=== PATIENT | male | born 1955 | race Two or more races ===

== ENCOUNTER 2020-01-17 16:00 | Inpatient (IN) | payer BC, OTHER ==
[~2020-01-17] VITALS: Ht 182.9 cm; Wt 96.7 kg
[2020-01-17] MEDS ORDERED: PIPERACILLIN-TAZOB 3.375GM 100 ML IV ONE (16:30)
[2020-01-17 19:05] LABS: Basophils # (auto) 0.1 10 ^3/uL (0-0.2); Basophils % (auto) 0.8 % (0.0-2.0); Eosinophils # (auto) 0.1 10 ^3/uL (0-0.8); Eosinophils % (auto) 0.6 % (0.0-7.0); Hematocrit 43.2 % (41.0-53.0); Hemoglobin 14.6 g/dL (13.5-17.5); Lymphocytes # (auto) 1.2 10 ^3/uL (0.4-5.4); Mean Corpuscular Hemoglobin 32.8 pg (28.0-32.0); Mean Corpuscular Hgb Conc. 33.8 g/dL (32.0-36.0); Mean Corpuscular Volume 96.9 fL (80.0-100.0); Monocytes # (auto) 0.8 10 ^3/uL (0-1.3); Monocytes % (auto) 8.8 % (0.0-12.0); Neutrophils # (auto) 6.8 10 ^3/uL (1.6-8.6); Neutrophils % (auto) 76.8 % (37.0-80.0); Nucleated Red Blood Cells % 0.1 %; Platelet Count (auto) 268 10^3/uL (140-450); Red Blood Cells 4.46 10^6/uL (4.5-5.90); Red Cell Distribution Width 14.4 % (11.8-14.3); White Blood Cell 8.9 10^3/uL (4.4-10.8)
[2020-01-17 19:06] LABS: Lactic Acid w/Reflex 2.1 mmol/L (0.4-2.0)
[2020-01-17 19:22] LABS: Albumin 3.1 g/dL (3.4-5.0); Calcium 8.4 mg/dL (8.5-10.1); Potassium 4.6 mmol/L (3.5-5.1)
[2020-01-17 19:25] LABS: INR 1.13 (0.9-1.15); Partial Thromboplastin Time 26.9 sec (23.0-31.2)
[2020-01-17 19:26] LABS: BUN/Creatinine Ratio 21.3; Bilirubin, Total 0.9 mg/dL (0.2-1.0); Total Protein 6.3 g/dL (6.4-8.2)
[2020-01-17] MEDS ORDERED: MORPHINE SULF INJ 2 MG/ML SYRINGE 1ML IV PRN (22:00)
[2020-01-17] MEDS ORDERED: ACETAMINOPHEN 325 MG TAB PO PRN (22:00)
[2020-01-17] MEDS ORDERED: ONDANSETRON HCL 4 MG/2 ML VIAL IV PRN (22:00)
[2020-01-17] MEDS ORDERED: NITROGLYCERIN 0.4 MG SL TAB SL PRN (22:00)
[2020-01-17] MEDS: CARVEDILOL 3.125 MG TAB PO SCH (22:00)
[2020-01-17] MEDS ORDERED: TEMAZEPAM 15 MG CAP PO PRN (22:00)
[2020-01-17] MEDS ORDERED: FUROSEMIDE 40 MG/4 ML VIAL IV ONE (22:00)
[2020-01-17] MEDS: ATORVASTATIN 20 MG TAB PO SCH (22:38)
[2020-01-17] MEDS: FAMOTIDINE 20 MG TAB PO SCH (22:38)
[2020-01-17] MEDS: cefTRIAXone 1GM/50ML D5W 50 ML IV SCH (22:39)
[2020-01-17] MEDS: ENOXAPARIN SOD 40 MG/0.4 ML SYRINGE SC SCH (22:39)
[2020-01-18] MEDS ORDERED: VANCOMYCIN 1GM/250ML 250 ML IV ONE (00:15)
[2020-01-18 05:33] LABS: Urine Bacteria FEW /hpf (None Seen); Urine Blood Negative /uL (Negative); Urine Specific Gravity 1.006 (1.001-1.035); Urine WBC <1 /hpf (0 - 3)
[2020-01-18] MEDS ORDERED: FUROSEMIDE 20 MG/2 ML VIAL IV SCH (06:00)
[2020-01-18 06:26] LABS: Potassium 4.1 mmol/L (3.5-5.1)
[2020-01-18 06:35] LABS: BUN/Creatinine Ratio 16.3; Calcium 8.2 mg/dL (8.5-10.1)
[2020-01-18 06:55] LABS: Basophils # (auto) 0.1 10 ^3/uL (0-0.2); Basophils % (auto) 0.7 % (0.0-2.0); Eosinophils # (auto) 0.1 10 ^3/uL (0-0.8); Eosinophils % (auto) 0.9 % (0.0-7.0); Hematocrit 42.1 % (41.0-53.0); Hemoglobin 14.2 g/dL (13.5-17.5); Lymphocytes # (auto) 1.2 10 ^3/uL (0.4-5.4); Mean Corpuscular Hemoglobin 32.2 pg (28.0-32.0); Mean Corpuscular Hgb Conc. 33.7 g/dL (32.0-36.0); Mean Corpuscular Volume 95.8 fL (80.0-100.0); Monocytes # (auto) 1.1 10 ^3/uL (0-1.3); Monocytes % (auto) 13.1 % (0.0-12.0); Neutrophils # (auto) 5.8 10 ^3/uL (1.6-8.6); Neutrophils % (auto) 70.3 % (37.0-80.0); Nucleated Red Blood Cells % 0.2 %; Platelet Count (auto) 221 10^3/uL (140-450); Red Cell Distribution Width 14.5 % (11.8-14.3); White Blood Cell 8.2 10^3/uL (4.4-10.8)
--- NOTE | 2020-01-18 09:45 | NUR ---
Telemetry admit from ER ALYSE DALTON admitted to Telemetry unit after SBAR received. Patient oriented to JONNY DE LEÓN RN primary RN, unit,284 room,B bed, and unit policies regarding patient care and visiting hours. Patient now on continuous telemetry monitoring, tele box #84 and telemetry reading on arrival to unit is SR 90's. Patient weighed by bedscale and encouraged to call if they need something. All questions and concerns addressed, patient verbalized understanding. Note:
[2020-01-18] MEDS: CARVEDILOL 3.125 MG TAB PO SCH ×2 (10:00→21:28)
[2020-01-18] MEDS ORDERED: INDO50CA82 PO (10:08)
[2020-01-18] MEDS: PANTOPRAZOLE 40 MG TAB PO SCH (10:09)
[2020-01-18] MEDS: ASPirin 81 mg TAB PO SCH (10:09)
[2020-01-18] MEDS: cefTRIAXone 1GM/50ML D5W 50 ML IV SCH (10:10)
[2020-01-18] MEDS: FAMOTIDINE 20 MG TAB PO SCH ×2 (10:10→21:29)
[2020-01-18 10:12] VITALS: BP 121/96
--- NOTE | 2020-01-18 11:00 | NUR ---
wound care photos taken.
--- NOTE | 2020-01-18 12:15 | NUR ---
DOCTOR REEVES AT BEDSIDE DISCUSSING POC, SUGGESTING TO PATIENT THAT HE WOULD LIKE TO HAVE A RADIOLOGY CONSULT FOR THE FLUIDS IN PATIENTS ABDOMEN PER PATIENT HE DOESN'T WANT ANY INTERVENTION EXCEPT LASIX RIGHT NOW.
[2020-01-18 13:00] VITALS: BP 115/82
[2020-01-18] MEDS: FUROSEMIDE 20 MG/2 ML VIAL IV SCH ×2 (13:23→17:33)
--- NOTE | 2020-01-18 16:05 | NUR ---
Faxed request for patient medical records to [facility] fax #[phone] .
[2020-01-18 16:50] VITALS: BP 118/88
[2020-01-18] MEDS: ENOXAPARIN SOD 40 MG/0.4 ML SYRINGE SC SCH (17:32)
--- NOTE | 2020-01-18 19:30 | NUR ---
Opening Shift Note Assumed care of patient, awake and alert. No S/S of distress/SOB or pain. Instructed on POC and to call for assist PRN, will continue to monitor for changes Q1hr and PRN.
[2020-01-18] MEDS: ATORVASTATIN 20 MG TAB PO SCH (21:28)
[2020-01-18 22:00] VITALS: BP 109/75
[2020-01-19 05:00] VITALS: BP 120/78
[2020-01-19] MEDS: FUROSEMIDE 20 MG/2 ML VIAL IV SCH ×2 (05:43→17:45)
--- NOTE | 2020-01-19 07:25 | NUR ---
closing note endorsed care to day RN, denies distress at this time
[2020-01-19 09:00] VITALS: BP 113/79
[2020-01-19] MEDS: ASPirin 81 mg TAB PO SCH (09:24)
[2020-01-19] MEDS: cefTRIAXone 1GM/50ML D5W 50 ML IV SCH (09:24)
[2020-01-19] MEDS: DIGOXIN 0.125 MG TAB PO SCH (09:25)
[2020-01-19] MEDS: CARVEDILOL 3.125 MG TAB PO SCH ×2 (09:25→21:01)
[2020-01-19] MEDS: FAMOTIDINE 20 MG TAB PO SCH ×2 (09:26→21:01)
[2020-01-19] MEDS: PANTOPRAZOLE 40 MG TAB PO SCH (09:26)
[2020-01-19] MEDS: SACUBITRIL-VALSARTAN 24mg/26mg TAB PO SCH (09:26)
--- NOTE | 2020-01-19 11:00 | NUR ---
WOUND CARE NOTE: IN TO SEE PATIENT AT THIS TIME PER WOUND CARE CONSULT REQUEST. PATIENT NOTED UPON ADMIT, TO HAVE MULTIPLE SKIN INTEGRITY ISSUES. ALL WOUNDS PHOTOGRAPHED AT THAT TIME BY BEDSIDE NURSE FOR REFERENCE. RECENTLY, PATIENT ADMITTED TO [facility] WITH DIAGNOSIS OF ACUTE/CHRONIC CHF. CURRENT BRANDIE SCORE IS 17. PATIENT IS ABLE TO SELF TURN/REPOSITION SELF. 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 PATIENT IS NOTED TO HAVE EDEMA, ERYTHEMA WITH WEEPING OF THE TISSUES TO BLE. PATIENT RECEIVING LASIX SINCE ADMIT. HIS WEEPING HAS MUCH IMPROVED AT THIS TIME. HE HAS OPEN SKIN TEARS/EXCORIATIONS TO RIGHT MEDIAL THIGH D/T HIM SCRATCHING THE SKIN. PARTIAL THICKNESS TEARS ARE WEEPING LIGHT AMOUNTS OF SEROUS DRAINAGE. THERE IS AN OPEN BLISTER TO THE LEFT [place]KE[place] WELL, ALSO WEEPING LIGHT AMOUNTS OF SEROUS DRAINAGE. THERAHONEY GAUZE AND OPTIFOAM GENTLE DRESSINGS APPLIED. RECOMMEND: DAILY/PRN DRESSING CHANGES TO OPEN, WEEPING WOUNDS OF BLE, ELEVATION OF BLE UP FOR EDEMA CONTROL, USING KNEE GATCH AND/OR PILLOWS; SKIN/WOUND CARE PLAN, CONTINUED MONITORING BY WOUND CARE TEAM. Addendum: 01/19/20 at 1423 by Mercedes Cutler RN Amended: Links added.
--- NOTE | 2020-01-19 11:56 | NUR ---
incinerator plant laborer consents signed and placed in chart.
[2020-01-19 13:00] VITALS: BP 117/83
--- NOTE | 2020-01-19 14:16 | NUR ---
Received a call from Monse ROBERTS at [facility] [phone] stated that if we need any discharge needs for the patient to call her.
[2020-01-19 17:00] VITALS: BP 115/86
[2020-01-19] MEDS: ENOXAPARIN SOD 40 MG/0.4 ML SYRINGE SC SCH (17:46)
[2020-01-19] MEDS: ATORVASTATIN 20 MG TAB PO SCH (21:01)
[2020-01-19 22:00] VITALS: BP 114/84
--- NOTE | 2020-01-19 22:30 | NUR ---
covid swab done for the procedure
--- NOTE | 2020-01-20 | NUR ---
pt is having diarrhea, sent sample to lab for cdiff.
[2020-01-20] MEDS: FUROSEMIDE 20 MG/2 ML VIAL IV SCH ×2 (03:46→18:16)
[2020-01-20 05:00] VITALS: BP 97/61
--- NOTE | 2020-01-20 06:00 | NUR ---
EKG and CHG wipes done
--- NOTE | 2020-01-20 07:30 | NUR ---
Opening Shift Note Assumed patient care from NOC RN. Patient currently out of bed to use restroom. No signs of distress at this time. Respirations even and unlabored. Safety precautions in place; Will continue to monitor q1hr and PRN.
--- NOTE | 2020-01-20 07:31 | NUR ---
closing note endorsed care to day RN, no sign of distress at this time
[2020-01-20 09:00] VITALS: BP 117/85
[2020-01-20] MEDS: cefTRIAXone 1GM/50ML D5W 50 ML IV SCH (09:19)
[2020-01-20] MEDS: ASPirin 81 mg TAB PO SCH (09:19)
[2020-01-20] MEDS: FAMOTIDINE 20 MG TAB PO SCH ×2 (09:21→22:00)
[2020-01-20] MEDS: DIGOXIN 0.125 MG TAB PO SCH (09:21)
[2020-01-20] MEDS: SACUBITRIL-VALSARTAN 24mg/26mg TAB PO SCH (09:21)
[2020-01-20] MEDS: PANTOPRAZOLE 40 MG TAB PO SCH (09:21)
[2020-01-20] MEDS: CARVEDILOL 3.125 MG TAB PO SCH ×2 (09:21→22:00)
--- NOTE | 2020-01-20 10:30 | NUR ---
at Bedside Dr. Diehl at bedside discussing plan of care with patient.
--- NOTE | 2020-01-20 12:00 | NUR ---
Patient Off Unit Patient off unit for procedure; patient accompanied by Jovany del toro) and Demian (RN). No signs of distress at this time.
--- NOTE | 2020-01-20 12:35 | NUR ---
IV NS lock started on LEFT forearm with 20G Angiocath per aseptic technique; pt. tolerated well. LEFT hand IV removed with cath intact due to reddened, puffy and tender; site dressed with gauze and Coban dressing.
[2020-01-20 13:00] VITALS: BP 115/73
[2020-01-20] MEDS ORDERED: LIDOCAINE 2%HCL (LOCAL ANESTH.) INJ 20ML MDV ONE (13:10)
[2020-01-20] MEDS ORDERED: fentaNYL CITRATE 100 MCG/2 ML VL ONE (13:10)
[2020-01-20] MEDS ORDERED: MIDAZOLAM HCL 1MG/1ML-2 ML VIAL ONE (13:10)
[2020-01-20] MEDS ORDERED: ANGIOMAX 250 MG VIAL IV ONE (13:10)
[2020-01-20] MEDS ORDERED: SODIUM CHL 0.9% 50 ML ONE (13:11)
[2020-01-20] MEDS ORDERED: TICAGRELOR 90 MG TAB ONE (13:43)
--- NOTE | 2020-01-20 13:55 | NUR ---
Patient brought to recovery via bed, report received from DEANNE Chin and DEANNE Bhakta. Patient is AO x 4, NAD noted. Right groin site is benign no s/s of bleeding or hematoma noted to site, dressing in place and is CDI. Positive circulation, movement, and sensation noted to BLE. Patient verbalized understanding to post-procedure care and flat time.
--- NOTE | 2020-01-20 14:10 | NUR ---
Patient is resting in bed with eyes closed, breaths even and unlabored. Right groin site remains unchanged.
--- NOTE | 2020-01-20 14:15 | NUR ---
Report given to primary RN, Davina.
--- NOTE | 2020-01-20 14:46 | NUR ---
Patient taken to telemetry unit via bed, cafeteria monitor in place. NAD noted upon departure. Primary RNDavina present at bedside to witness right groin site benign, no s/s of bleeding or hematoma formation. Bed set in lowest locked position with side rails up x2, call light is within reach and bed alarm set on for safety. Care endorsed to DEANNE Ghosh.
--- NOTE | 2020-01-20 14:50 | NUR ---
Patient Returned Patient returned to unit from Sheriff'S Sergeant. VS obtained: RR 16, SpO2 98% on 2L nasal cannula, HR 78, BP 119/86, temperature 97.6. No signs of distress patient to remain flat until 1600.
--- NOTE | 2020-01-20 16:00 | NUR ---
Up Patient sitting up in bed in semi-cano's position. No sign of bleeding or hematoma at incision site at this time. Will continue to monitor q1hr and PRN.
[2020-01-20 17:00] VITALS: BP 115/87
--- NOTE | 2020-01-20 17:30 | NUR ---
Nose Bleed Patient had nose bleed: provided with ice pack and tissues. Bleeding has currently stopped.
[2020-01-20] MEDS: ENOXAPARIN SOD 40 MG/0.4 ML SYRINGE SC SCH ×2 (18:00→18:16)
--- NOTE | 2020-01-20 19:19 | NUR ---
Closing Shift Note Report given to Camille LOYOLA Rn. Patient currently sitting up in bed, no signs of distress at this time.
[2020-01-20 22:00] VITALS: BP 102/77
[2020-01-20] MEDS: ATORVASTATIN 20 MG TAB PO SCH (22:00)
[2020-01-20] MEDS: TICAGRELOR 90 MG TAB PO SCH (22:00)
--- NOTE | 2020-01-20 23:28 | NUR ---
Noted patient's epistaxis would not stop. Noted large-sized clots already. Denied pain at this time. Refused bedtime pills. Ice pack offered but refused as well. Advised to be on a sitting position but is not compliant. Paged hospitalist. Charge Vasyl martinez.
--- NOTE | 2020-01-21 01:18 | NUR ---
Dr. Diez to bedside, treated nosebleed according to house standard protocol. Patient tolerated well. Will monitor.
--- NOTE | 2020-01-21 01:21 | NUR ---
Patient stated he has to go out get discharged in the morning. Hospitalist aware.
[2020-01-21 05:00] VITALS: BP 110/74
--- NOTE | 2020-01-21 05:30 | NUR ---
Paged hospitalist per patient request. Awaiting CB
[2020-01-21] MEDS: FUROSEMIDE 20 MG/2 ML VIAL IV SCH (06:12)
--- NOTE | 2020-01-21 07:30 | NUR ---
Opening Shift Note Assumed care of patient, asleep in bed. No S/S of distress/SOB or pain. Instructed on POC and to call for assist PRN, will continue to monitor for changes Q1hr and PRN. Bed is locked and in lowest position. Call light within reach.
[2020-01-21 08:40] VITALS: BP 119/83
[2020-01-21] MEDS: cefTRIAXone 1GM/50ML D5W 50 ML IV SCH (09:00)
--- NOTE | 2020-01-21 09:00 | NUR ---
DR. REEVES PER DR. REEVES PATIENT IS TO NOT BE GIVEN BLOOD THINNERS DUE TO EPISODE OF EPISTAXIS EARLY THIS MORNING. PATIENT HAS PACKING IN RIGHT NOSTRIL PLACED BY HOSPITALIST DUE TO UNABLE TO STOP BLEEDING. PATIENT WILL RETURN Thursday01/23/20 TO ER TO HAVE PACKING REMOVED. PATIENT INSTRUCTED BY DR. REEVES TO NOT TAKE BLOOD THINNERS UNTIL AFTER PACKING IS REMOVED FROM RIGHT NOSTRIL. PATIENT WILL RETURN TO ER BEFORE THURSDAY IF ANY BLEEDING OCCURS THAT IS NOT CONTROLLED WITH PACKING.
[2020-01-21 09:26] VITALS: BP 119/83
--- NOTE | 2020-01-21 09:30 | NUR ---
[facility] FAXED PRESCRIPTIONS TO [facility] TO HAVE PATIENTS CHF PROTOCOL MEDICATIONS IN HAND BEFORE DISCHARGE. WILL AWAIT TO CENTRAL STERILE TECHNICIAN MEDICATIONS WHEN DISCHARGED.
[2020-01-21] MEDS: ASPirin 81 mg TAB PO SCH (10:00)
[2020-01-21] MEDS: CARVEDILOL 3.125 MG TAB PO SCH (10:00)
[2020-01-21] MEDS: DIGOXIN 0.125 MG TAB PO SCH (10:00)
[2020-01-21] MEDS: SACUBITRIL-VALSARTAN 24mg/26mg TAB PO SCH (10:00)
[2020-01-21] MEDS: PANTOPRAZOLE 40 MG TAB PO SCH (10:00)
[2020-01-21] MEDS: FAMOTIDINE 20 MG TAB PO SCH (10:00)
[2020-01-21] MEDS: TICAGRELOR 90 MG TAB PO SCH (10:00)
--- NOTE | 2020-01-21 10:30 | NUR ---
DISCHARGED PATIENT GIVEN DISCHARGE PAPERWORK, PRESCRIPTIONS FILLED BY [facility], ALL QUESTIONS AND CONCERNS ANSWERED. PATIENT TELEMONITOR REMOVED AND SENT TO ICU HEART LAB. PATIENT EDUCATED ON EPISTAXIS AND RETURNING Thursday01/23/20 TO REMOVE PACKING FROM RIGHT NOSTRIL. PATIENT VERBALIZED UNDERSTANDING OF COMING BACK TO ER AND OF NOT TAKING BLOOD THINNERS INSTRUCTED PER DR. REEVES. PATIENT WILL AWAIT TRADE EMBALMER. IV removal IV DC'd with clean sterile technique, catheter fully intact. Pressure dressing applied to site. Patient tolerated well.
--- NOTE | 2020-01-21 10:35 | NUR ---
DISCHARGE PICTURES PATIENT REFUSED PICTURES OF WOUNDS DUE TO BEING DISCHARGED AND RIDE IS HERE. PATIENT IS BEING TAKEN DOWN VIA WHEELCHAIR TO RIDE.
--- NOTE | 2020-01-21 10:35 | NUR ---
FOLLOW UP APPOINTMENTS PATIENT DISCHARGE PAPERWORK FAXED TO DR. AMOS FOR CARDIOLOGY FOLLOW UP APPOINTMENT. PATIENT VERBALIZED UNDERSTANDING OF CALLING THURSDAY TO SCHEDULE FOLLOW UP DR. HINKLE. UNABLE TO MAKE FOLLOW UP APPOINTMENT DUE TO IT BEING THE WEEKEND.
== END 2020-01-21 10:50 | disposition home or self-care (01) | DRG 247 ==
LOC: EDBD 16:00 → ER 16:00 → TELE 16:01 → TELE-WESTW 01-18 12:17
PROVIDERS: ADMIT Nurse Practitioner; ATTEND Family Medicine
PROC: 027034Z Dilation of Coronary Artery, One Artery with Drug-eluting Intraluminal Device, Percutaneous Approach (ICD-10-PCS; principal; 2020-01-20)
PROC: B2111ZZ Fluoroscopy of Multiple Coronary Arteries using Low Osmolar Contrast (ICD-10-PCS; 2020-01-20)
PROC: 4A023N6 Measurement of Cardiac Sampling and Pressure, Right Heart, Percutaneous Approach (ICD-10-PCS; 2020-01-20)
PROC: B2151ZZ Fluoroscopy of Left Heart using Low Osmolar Contrast (ICD-10-PCS; 2020-01-20)
DX: I11.0 Hypertensive heart disease with heart failure (principal); D68.59 Other primary thrombophilia; I48.20 Chronic atrial fibrillation, unspecified; R18.8 Other ascites; I50.23 Acute on chronic systolic (congestive) heart failure; I42.9 Cardiomyopathy, unspecified; E11.9 Type 2 diabetes mellitus without complications; E78.00 Pure hypercholesterolemia, unspecified; E86.0 Dehydration; I89.0 Lymphedema, not elsewhere classified; R77.8 Other specified abnormalities of plasma proteins; Z53.29 Procedure and treatment not carried out because of patient's decision for other reasons; I25.10 Atherosclerotic heart disease of native coronary artery without angina pectoris; R04.0 Epistaxis; Z79.02 Long term (current) use of antithrombotics/antiplatelets; Z91.14 Patient's other noncompliance with medication regimen; Z95.1 Presence of aortocoronary bypass graft; Z98.61 Coronary angioplasty status; Z20.828 Contact with and (suspected) exposure to other viral communicable diseases
CPT/HCPCS: 36415; 70450; 71045; 74176; 76705; 80048; 80053; 81001; 83605; 83880; 84484; 84550; 85025; 85610; 85730; 87040; 87426; 87493; 93306; 96365; 96367; 96375; G0378; J0696; J2250; J2543

== ENCOUNTER → 2020-07-02 | Outpatient (CLI) | payer BC ==
[~2020-07-02] MED LIST: INDO50CA82 PO
[2020-07-02 12:11] LABS: Urine Bacteria NONE SEEN /hpf (None Seen); Urine Blood Negative /uL (Negative); Urine Hyaline Cast FEW /lpf (0 - 2); Urine Mucus FEW (None Seen); Urine Specific Gravity 1.021 (1.001-1.035); Urine WBC <1 /hpf (0 - 3)
[2020-07-02 12:19] LABS: Basophils # (auto) 0.1 10 ^3/uL (0-0.2); Basophils % (auto) 0.8 % (0.0-2.0); Eosinophils # (auto) 0.1 10 ^3/uL (0-0.8); Eosinophils % (auto) 1.7 % (0.0-7.0); Hematocrit 39.8 % (41.0-53.0); Hemoglobin 13.9 g/dL (13.5-17.5); Lymphocytes # (auto) 1.8 10 ^3/uL (0.4-5.4); Lymphocytes % (auto) 25.8 % (10.0-50.0); Mean Corpuscular Hemoglobin 30.5 pg (28.0-32.0); Mean Corpuscular Hgb Conc. 34.9 g/dL (32.0-36.0); Mean Corpuscular Volume 87.4 fL (80.0-100.0); Monocytes # (auto) 0.7 10 ^3/uL (0-1.3); Neutrophils # (auto) 4.1 10 ^3/uL (1.6-8.6); Neutrophils % (auto) 60.7 % (37.0-80.0); Platelet Count (auto) 227 10^3/uL (140-450); Red Blood Cells 4.56 10^6/uL (4.5-5.90); Red Cell Distribution Width 14.6 % (11.8-14.3); White Blood Cell 6.8 10^3/uL (4.4-10.8)
[2020-07-02 14:49] LABS: Calcium 9.8 mg/dL (8.5-10.1); Potassium 4.5 mmol/L (3.5-5.1)
[2020-07-02 14:54] LABS: BUN/Creatinine Ratio 25.9; Bilirubin, Total 0.6 mg/dL (0.2-1.0); Total Protein 7.4 g/dL (6.4-8.2)
== END | disposition home or self-care (01) ==
LOC: LAB 11:30
PROVIDERS: ATTEND Student in an Organized Health Care Education/Training Program
DX: I11.0 Hypertensive heart disease with heart failure (principal); I50.20 Unspecified systolic (congestive) heart failure; R73.9 Hyperglycemia, unspecified
CPT/HCPCS: 36415; 80053; 80061; 81001; 83036; 84443; 85025

== ENCOUNTER → 2020-10-31 | Outpatient (CLI) | payer BC ==
[2020-10-31 12:05] LABS: Basophils # (auto) 0.1 10 ^3/uL (0-0.2); Basophils % (auto) 0.6 % (0.0-2.0); Eosinophils # (auto) 0.1 10 ^3/uL (0-0.8); Eosinophils % (auto) 1.2 % (0.0-7.0); Hematocrit 40.8 % (41.0-53.0); Hemoglobin 14.3 g/dL (13.5-17.5); Lymphocytes # (auto) 2.6 10 ^3/uL (0.4-5.4); Lymphocytes % (auto) 29.2 % (10.0-50.0); Mean Corpuscular Hemoglobin 30.9 pg (28.0-32.0); Mean Corpuscular Volume 88.1 fL (80.0-100.0); Monocytes # (auto) 0.9 10 ^3/uL (0-1.3); Monocytes % (auto) 9.5 % (0.0-12.0); Neutrophils # (auto) 5.3 10 ^3/uL (1.6-8.6); Neutrophils % (auto) 59.5 % (37.0-80.0); Nucleated Red Blood Cells % 0.1 %; Red Blood Cells 4.62 10^6/uL (4.5-5.90); Red Cell Distribution Width 12.9 % (11.8-14.3)
[2020-10-31 12:25] LABS: Potassium 4.4 mmol/L (3.5-5.1)
[2020-10-31 12:29] LABS: BUN/Creatinine Ratio 23.9; Calcium 8.9 mg/dL (8.5-10.1); Uric Acid 9.4 mg/dL (3.5-7.2)
== END | disposition home or self-care (01) ==
LOC: LAB 11:07
PROVIDERS: ATTEND Student in an Organized Health Care Education/Training Program
DX: Z12.11 Encounter for screening for malignant neoplasm of colon (principal); E11.9 Type 2 diabetes mellitus without complications; I10 Essential (primary) hypertension
CPT/HCPCS: 36415; 80048; 82043; 82274; 83036; 84443; 84550; 85025

== ENCOUNTER → 2021-04-12 | Outpatient (CLI) | payer BC ==
[2021-04-12 10:05] LABS: Basophils # (auto) 0.1 10 ^3/uL (0-0.2); Basophils % (auto) 0.6 % (0.0-2.0); Eosinophils # (auto) 0.1 10 ^3/uL (0-0.8); Eosinophils % (auto) 0.8 % (0.0-7.0); Hematocrit 42.6 % (41.0-53.0); Hemoglobin 14.6 g/dL (13.5-17.5); Lymphocytes # (auto) 2.3 10 ^3/uL (0.4-5.4); Lymphocytes % (auto) 26.7 % (10.0-50.0); Mean Corpuscular Hgb Conc. 34.3 g/dL (32.0-36.0); Mean Corpuscular Volume 87.5 fL (80.0-100.0); Monocytes # (auto) 0.8 10 ^3/uL (0-1.3); Monocytes % (auto) 8.7 % (0.0-12.0); Neutrophils # (auto) 5.5 10 ^3/uL (1.6-8.6); Neutrophils % (auto) 63.2 % (37.0-80.0); Nucleated Red Blood Cells % 0.1 %; Red Blood Cells 4.86 10^6/uL (4.5-5.90); Red Cell Distribution Width 13.3 % (11.8-14.3); White Blood Cell 8.8 10^3/uL (4.4-10.8)
[2021-04-12 10:08] LABS: Urine Bacteria NONE SEEN /hpf (None Seen); Urine Blood TRACE /uL (Negative); Urine Specific Gravity 1.017 (1.001-1.035); Urine Sperm PRESENT /hpf (None Seen); Urine WBC <1 /hpf (0 - 3)
[2021-04-12 11:03] LABS: Albumin 4.2 g/dL (3.4-5.0); Calcium 9.3 mg/dL (8.5-10.1); Potassium 4.4 mmol/L (3.5-5.1)
[2021-04-12 11:09] LABS: BUN/Creatinine Ratio 13.5; Bilirubin, Total 0.5 mg/dL (0.2-1.0); Total Protein 8.1 g/dL (6.4-8.2)
== END | disposition home or self-care (01) ==
LOC: LAB 09:45
PROVIDERS: ATTEND Student in an Organized Health Care Education/Training Program
DX: E11.9 Type 2 diabetes mellitus without complications (principal); I10 Essential (primary) hypertension; M1A.9XX1 Chronic gout, unspecified, with tophus (tophi)
CPT/HCPCS: 36415; 80053; 80061; 81001; 82043; 83036; 85025

== ENCOUNTER → 2022-01-03 | Outpatient (CLI) | payer BC ==
[2022-01-03 15:09] LABS: Albumin 4.2 g/dL (3.4-5.0); Calcium 8.8 mg/dL (8.5-10.1); Potassium 4.5 mmol/L (3.5-5.1)
[2022-01-03 15:14] LABS: BUN/Creatinine Ratio 11.4; Bilirubin, Total 1.4 mg/dL (0.2-1.0); Total Protein 7.2 g/dL (6.4-8.2); Uric Acid 7.4 mg/dL (3.5-7.2)
== END | disposition home or self-care (01) ==
LOC: LAB 13:59
PROVIDERS: ATTEND Student in an Organized Health Care Education/Training Program
DX: Z12.11 Encounter for screening for malignant neoplasm of colon (principal); E11.9 Type 2 diabetes mellitus without complications; M1A.9XX1 Chronic gout, unspecified, with tophus (tophi)
CPT/HCPCS: 36415; 80053; 82043; 83036; 84550

== ENCOUNTER → 2022-01-08 | Outpatient (CLI) | payer BC | END | disposition home or self-care (01) | LOC: LAB 08:27 | PROVIDERS: ATTEND Student in an Organized Health Care Education/Training Program | DX: Z12.11 Encounter for screening for malignant neoplasm of colon (principal); E11.9 Type 2 diabetes mellitus without complications; M1A.9XX1 Chronic gout, unspecified, with tophus (tophi) | CPT/HCPCS: 82274 ==

== ENCOUNTER 2024-08-10 16:24 | Inpatient (IN) | payer MEDICARE, BC ==
[~2024-08-10] VITALS: Ht 175.3 cm; Wt 85.6 kg
[2024-08-10] MEDS: SODIUM CHLORIDE 0.9% 500 ML IV ONE (16:45)
[2024-08-10] MEDS: PROCHLORPERAZINE EDISYLATE 5 MG/ML 2ML VIAL IV ONE (16:45)
--- NOTE | 2024-08-10 17:02 | ED.PDOC ---
SOB-HPI HPI Comments 68 y/o M, with PMHx of hypothyroidism, arthritis, CAD HTN, and DM presents to the ED for CC of shortness of breath. Patient states, he has been experiencing increased shortness of breath with associated symptoms of diarrhea and bilateral leg swelling x1week. Patient denies chest pain, nausea, vomiting, chills, fever, or body-aches. No other symptoms or modifying factors present at this time. Time Seen by MD: 16:55 Primary Care Provider: Viv REEVES Reviewed notes: Nurses Notes, Medications, Allergies Information Source: Patient Mode of Arrival: Wheelchair Severity: Moderate Timing: Weeks Duration: Since onset Context: With Light Exertion PE Risk Factors: None History of: CHF Prehospital treatment: None Modifying Factors: Nothing Associated Signs and Symptoms: Leg Swelling Past Medical History PAST MEDICAL HISTORY: AFIB, Arthritis, CAD, CHF, DM, HTN, Thyroid Surgical History: Tonsillectomy Surgical History (Other): RIGHT KNEE Family History Family History: Family hx of heart wilver Social History Smoker: Non-Smoker Alcohol: Denies ETOH Use Drugs: Denies Drug Use Lives In: Home Constitutional: denies: chills, diaphoresis, fatigue, fever, malaise, sweats, weakness, others EENTM: denies: blurred vision, double vision, ear bleeding, ear discharge, ear drainage, ear pain, ear ringing, eye pain, eye redness, hearing loss, mouth pain, mouth swelling, nasal discharge, nose bleeding, nose congestion, nose pain, photophobia, tearing, throat pain, throat swelling, voice changes, others Respiratory: reports: shortness of breath; denies: cough, hemoptysis, orthopnea, SOB at rest, SOB with excertion, stridor, wheezing, others Cardiovascular: denies: chest pain, dizzy spells, diaphoresis, Dyspnea on exertion, edema, irregular heart beat, left arm pain, lightheadedness, palpitations, PND, syncope, others Gastrointestinal: reports: diarrhea; denies: abdomen distended, abdominal pain, blood streaked bowels, constipated, dysphagia, difficulty swallowing, hematemesis, melena, nausea, poor appetite, poor fluid intake, rectal bleeding, rectal pain, vomiting, others Genitourinary: denies: burning, dysuria, flank pain, frequency, hematuria, incontinence, penile discharge, penile sore, pain, testicle pain, testicle swelling, urgency, others Neurological: denies: dizziness, fainting, headache, left sided numbness, left sided weakness, numbness, paresthesia, pre-existing deficit, right sided numbness, right sided weakness, seizure, speech problems, tingling, tremors, weakness, others Musculoskeletal: reports: others (BILATERAL LEG SWELLING); denies: back pain, gout, joint pain, joint swelling, muscle pain, muscle stiffness, neck pain Integumetry: denies: bruises, change in color, change in hair/nails, dryness, laceration, lesions, lumps, rash, wounds, others Allergic/Immunocompromised: denies: Difficulty Healing, Frequent Infections, Hives, Itching, others Hematologic/Lymphatic: denies: anemia, blood clots, easy bleeding, easy bruising, swollen glands, others Endocrine: denies: excessive hunger, excessive sweating, excessive thirst, excessive urination, flushing, intolerance to cold, intolerance to heat, unexplained weight gain, unexplained weight loss, others Psychiatric: denies: anxiety, bipolar disorder, depression, hopeless, panic disorder, schizophrenia, sleepless, suicidal, others All Other Systems: Reviewed and Negative Physical Exam General Appearance: Moderate Distress HEENT: Normal ENT Inspection, Pharynx Normal, TMs Normal Neck: Full Range of Motion, Non-Tender, Normal, Normal Inspection Respiratory: Chest Non-Tender, Decreased Breath Sounds, Lungs Clear, No Accessory Muscle Use Cardiovascular: No Edema, No JVD, No Murmur, No Gallop, Normal Peripheral Pulses, Regular Rate/Rhythm Breast Exam: Deferred Gastrointestinal: No Organomegaly, Non Tender, No Pulsatile Mass, Normal Bowel Sounds, Soft Genitalia: Deferred Pelvic: Deferred Rectal: Deferred Extremities: No calf tenderness, Normal capillary refill, Normal inspection, Normal range of motion, Non-tender, No pedal edema Musculoskeletal : Apperance: Normal Neurologic: Alert, agitator operator II-XII nml as Tested, No Motor Deficits, Normal Affect, Normal Mood, No Sensory Deficits Cerebellar Function: Normal Reflexes: Normal Skin: Dry, Normal Color, Warm Lymphatic: No Adenopathy Was a procedure done? Was a procedure done?: No Differential Dx Differential Diagnosis: CHF, Pneumonia, Sinusitis, Pharyngitis, URI X-Ray, Labs, Meds, VS Vital Signs Date Time Temp Pulse Resp B/P (MAP) Pulse Ox O2 Delivery O2 Flow Rate FiO2 08/10/24 20:24 97.9 69 14 124/80 (95) 100 97.9 08/10/24 17:42 98.0 69 16 120/75 (90) 100 98.0 08/10/24 17:33 68 Lab Test 08/10/24 20:10 08/10/24 18:15 08/10/24 17:11 Range/Units Troponin I High Sensitivity Pending 50 52 </=54 ng/L White Blood Count 8.3 4.4-10.8 10^3/uL Red Blood Count 5.66 4.5-5.90 10^6/uL Hemoglobin 17.1 13.5-17.5 g/dL Hematocrit 51.1 41.0-53.0 % Mean Corpuscular Volume 90.2 80.0-100.0 fL Mean Corpuscular Hemoglobin 30.3 28.0-32.0 pg Mean Corpuscular Hemoglobin Concent 33.6 32.0-36.0 g/dL Red Cell Distribution Width 20.3 H 11.8-14.3 % Platelet Count 183 140-450 10^3/uL Mean Platelet Volume 9.8 6.9-10.8 fL Neutrophils (%) (Auto) 70.1 37.0-80.0 % Lymphocytes (%) (Auto) 18.3 10.0-50.0 % Monocytes (%) (Auto) 9.7 0.0-12.0 % Eosinophils (%) (Auto) 1.0 0.0-7.0 % Basophils (%) (Auto) 0.9 0.0-2.0 % Neutrophils # (Auto) 5.8 1.6-8.6 10 ^3/uL Lymphocytes # (Auto) 1.5 0.4-5.4 10 ^3/uL Monocytes # (Auto) 0.8 0-1.3 10 ^3/uL Eosinophils # (Auto) 0.1 0-0.8 10 ^3/uL Basophils # (Auto) 0.1 0-0.2 10 ^3/uL Nucleated Red Blood Cells 0.2 % Prothrombin Time 14.8 H 9.3-11.8 sec Prothrombin Time INR 1.45 H 0.9-1.15 Activated Partial Thromboplast Time 28.8 24.5-34.5 SEC Sodium Level 138 136-145 mmol/L Potassium Level 4.1 3.5-5.1 mmol/L Chloride Level 106 98-107 mmol/L Carbon Dioxide Level 20 20-31 mmol/L Anion Gap 12 5-15 Blood Urea Nitrogen 24 H 9-23 mg/dL Creatinine 1.23 0.700-1.30 mg/dL Glomerular Filtration Rate Calc 64 >90 mL/min BUN/Creatinine Ratio 19.5 10.0-20.0 Serum Glucose 89 74-106 mg/dL Calcium Level 9.6 8.7-10.4 mg/dL Total Bilirubin 2.7 H 0.2-1.0 mg/dL Aspartate Amino Transferase (AST) 34 13-40 U/L Alanine Aminotransferase (ALT) 14 7-40 U/L Alkaline Phosphatase 120 H 46-116 U/L B-Type Natriuretic Peptide 1827.97 0-100 pg/mL Total Protein 6.5 5.7-8.2 g/dL Albumin 4.2 3.2-4.8 g/dL CXR: IMPRESSION: Right basilar atelectasis or pneumonia. The patient's CBC is within normal limits The chemistry panel is within normal limits The INR is 1.45 The BNP is elevated at 1827.97 At this time, the patient is being admitted to the hospitalist The patient is having persistent shortness a breath. Images Reviewed?: Images reviewed and evaluated by me Time of 1ST Reevaluation: 17:25 Reevaluation 1ST: Unchanged Patient Education/Counseling: Diagnosis, Treatment, Prognosis Family Education/Counseling: No Family Present Departure 1 Departure Time of Disposition: 20:44 Impression: Primary Impression: Acute respiratory failure Qualified Codes: J96.00 - Acute respiratory failure, unspecified whether with hypoxia or hypercapnia Disposition: ADMITTED INPATIENT Admit to: [facility] Condition: Fair Critical Care Note Critical Care Time?: Yes (35 min-critical care time only) Stability Stability form required: Yes Unstable for transfer: Telemetry monitoring (Telemetry monitoring required), ED Physician Assesment (Clinical assesment) Heart Score Heart Score: Heart Score Response (Comments) Value History N/A 0 EKG N/A 0 Age N/A 0 Risk Factors N/A 0 Troponin N/A 0 Total 0 I personally scribed for SOHAIL KRAMER MD ([email or web address]) on 08/10/24 at 17:02. Electronically submitted by Aleja Clemens ([email or web address]). I personally scribed for SOHAIL KRAMER MD ([email or web address]) on 08/10/24 at 17:29. Electronically submitted by Aleja Clemens ([email or web address]). SOHAIL KRAMER MD August 10, 2024 17:02
--- NOTE | 2024-08-10 17:20 | DVH ---
EXAM: XR Chest, 2 Views CLINICAL INDICATION: sob TECHNIQUE: Frontal and lateral views of the chest. COMPARISON: None FINDINGS: LUNGS AND PLEURAL SPACES: Right basilar atelectasis or pneumonia. No pneumothorax. HEART: Unremarkable. No cardiomegaly. MEDIASTINUM: Unremarkable. Normal mediastinal contour. BONES/JOINTS: Unremarkable. No acute fracture. OTHER FINDINGS: . IMPRESSION: Right basilar atelectasis or pneumonia.
[2024-08-10 17:28] LABS: Eosinophils # (auto) 0.1 10 ^3/uL (0-0.8); Mean Corpuscular Hemoglobin 30.3 pg (28.0-32.0); Nucleated Red Blood Cells % 0.2 %
[2024-08-10 17:30] LABS: Basophils # (auto) 0.1 10 ^3/uL (0-0.2); Basophils % (auto) 0.9 % (0.0-2.0); Hematocrit 51.1 % (41.0-53.0); Hemoglobin 17.1 g/dL (13.5-17.5); Lymphocytes # (auto) 1.5 10 ^3/uL (0.4-5.4); Lymphocytes % (auto) 18.3 % (10.0-50.0); Mean Corpuscular Hgb Conc. 33.6 g/dL (32.0-36.0); Mean Corpuscular Volume 90.2 fL (80.0-100.0); Monocytes # (auto) 0.8 10 ^3/uL (0-1.3); Monocytes % (auto) 9.7 % (0.0-12.0); Neutrophils # (auto) 5.8 10 ^3/uL (1.6-8.6); Neutrophils % (auto) 70.1 % (37.0-80.0); Platelet Count (auto) 183 10^3/uL (140-450); Red Blood Cells 5.66 10^6/uL (4.5-5.90); White Blood Cell 8.3 10^3/uL (4.4-10.8)
--- NOTE | 2024-08-10 17:35 | ECG ---
[facility] Test Date: 2024-08-10 Test Time: 17:33:47 Pat Name: ALYSE DALTON Department: ER Room: [address] [place] [address] Gender: M Cap Maker: CHANDLER : 1955 Requested By: SOHAIL KRAMER Order Number: [id number] Reading MD: Ko Pimentel Measurements Intervals [place] Rate: 68 P: 140 SD: 266 QRS: -28 QRSD: 167 T: 52 QT: 503 QTc: 536 Interpretive Statements Sinus or ectopic atrial rhythm Prolonged SD interval Right bundle branch block Consider inferior infarct Anteroseptal infarct, age indeterminate Baseline wander in lead(s) V3 Electronically Signed On 08-11-2024 13:14:35 PDT by Ko Pimentel Please click the below link to view image of tracing.
[2024-08-10 17:44] LABS: INR 1.45 (0.9-1.15); Partial Thromboplastin Time 28.8 SEC (24.5-34.5); Prothrombin Time 14.8 sec (9.3-11.8)
[2024-08-10 17:48] LABS: Alanine Aminotransferase 14 U/L (7-40); Albumin 4.2 g/dL (3.2-4.8); Anion Gap 12 (5-15); Aspartate Aminotransferase 34 U/L (13-40); BUN/Creatinine Ratio 19.5 (10.0-20.0); Calcium 9.6 mg/dL (8.7-10.4); Chloride 106 mmol/L (98-107); Glucose 89 mg/dL (74-106); Potassium 4.1 mmol/L (3.5-5.1); Sodium 138 mmol/L (136-145); Total Protein 6.5 g/dL (5.7-8.2)
[2024-08-10 18:07] LABS: Alkaline Phosphatase 120 U/L (46-116); Bilirubin, Total 2.7 mg/dL (0.2-1.0); Blood Urea Nitrogen 24 mg/dL (9-23); Carbon Dioxide 20 mmol/L (20-31); Red Cell Distribution Width 20.3 % (11.8-14.3)
[2024-08-10] MEDS: ASPirin 81 mg TAB PO SCH (21:15)
[2024-08-10 22:21] LABS: Magnesium 2.1 mg/dL (1.6-2.6)
--- NOTE | 2024-08-10 22:45 | DVH ---
INDICATION: transaminitis TECHNIQUE: Ultrasound liver. Multiple real-time sonographic images of the abdomen were obtained. COMPARISON: ABDOMEN SINGLE ORGAN QUAD on DOS: 01/18/20 FINDINGS: Increased parenchymal echogenicity consistent with steatosis. The liver measures 14.01 cm. No intrahepatic biliary ductal dilatation is noted. Right pleural effusion The gallbladder wall measures 0.45 cm and is thickened. Gallstones visible The common duct measure s 0.55 cm and is unremarkable. No pericholecystic fluid is noted. Scattered ascites. Negative sonogr aphic Pathak's sign The right kidney measures 10.17 cm. No hydronephrosis. The left kidney measures 9.95 cm. No hydrone phrosis. Both kidneys show increased echogenicity to the renal cortex The pancreas is not well visualized due to obscuration from bowel gas. IMPRESSION: 1. Cholelithiasis, thickened gallbladder wall and negative sonographic Pathak's sign. 2. Increased echogenicity of the renal cortex bilaterally suggesting chronic renal disease. 3. Right pleural effusion. 4. Scattered ascites
--- NOTE | 2024-08-10 22:46 | DVH ---
Bilateral lower extremity venous duplex Clinical History: dvt Comparison: None Technique: Duplex Doppler evaluation of the deep venous systems of both lower extremities from the common femora l veins to the popliteal veins including color Doppler and spectral/pulsed waveform analysis was perf ormed. Findings: RIGHT SIDE: The common femoral vein demonstrates appropriate compressibility and waveform variability. There is compressibility/patency of the great saphenous vein at the proximal thigh. The femoral vein demonstrates appropriate compressibility and waveform variability. The deep femoral vein demonstrates appropriate compressibility and waveform variability. The popliteal vein demonstrates appropriate compressibility and waveform variability. There is normal compressibility at the tibioperoneal trunk. LEFT SIDE: The common femoral vein demonstrates appropriate compressibility and waveform variability. There is compressibility/patency of the great saphenous vein at the proximal thigh. The femoral vein demonstrates appropriate compressibility and waveform variability. The deep femoral vein demonstrates appropriate compressibility and waveform variability. The popliteal vein demonstrates appropriate compressibility and waveform variability. There is normal compressibility at the tibioperoneal trunk. Impression: 1. No right or left femoropopliteal venous thrombosis. 2. Bilateral inguinal lymph nodes. Largest on the right measures 3.3 cm. Largest on the left measures 3.2 cm.
--- NOTE | 2024-08-10 22:46 | DVHHP2 ---
History of Present Illness Reason for Visit: SOB History of Present Illness 68-year-old male with history of AFib (not on anticoagulation), CAD with LAD stent (2019), CHF, HTN, DM2, hypothyroidism, and psoriasis presents with one week of progressive shortness of breath. Associated symptoms include diarrhea and bilateral leg swelling. Denies chest pain, nausea, vomiting, chills, fever, or body aches. ROS: SOB, + diarrhea, + bilateral LE swelling Denies orthopnea, PND, chest pain, syncope, or weight loss Past Medical History: AFib, CAD (s/p LAD stent 2019), CHF, DM2, HTN, Hypothyroidism, Psoriasis Surgical History: Tonsillectomy Allergies: NKDA Social History: Non-smoker, denies alcohol or drug use Family History: Positive for heart disease Imaging/Labs: BNP: Elevated Liver US: Hepatic steatosis, thickened gallbladder wall with negative [place], right pleural effusion, ascites, increased renal cortical echogenicity Bilateral LE Doppler: No evidence of DVT CXR: Right basilar atelectasis EKG: NSR, RBBB Review of Systems Allergies: Coded Allergies: NO KNOWN ALLERGIES (Unverified , 01/17/20) Medications Current Medications Medications Dose Ordered Sig/Bakari Route Start Time Stop Time Status Last Admin Dose Admin Enoxaparin Sodium 80 mg BID SC 08/10/24 22:00 Aspirin 81 mg DAILY PO 08/10/24 21:15 Furosemide 40 mg DAILY IV 08/11/24 10:00 Atorvastatin Calcium 40 mg HS PO 08/10/24 22:00 Exam Vital Signs Vital Signs Date Time Temp Pulse Resp B/P (MAP) Pulse Ox O2 Delivery O2 Flow Rate FiO2 08/10/24 20:24 97.9 69 14 124/80 (95) 100 97.9 Exam Physical Exam: General: Moderate respiratory distress Lungs: Mild bibasilar rales Cardiac: NSR with RBBB on EKG Abdomen: Non-tender, no guarding or rebound Extremities: Bilateral LE edema, open wounds Neuro: No focal deficits Labs/Xrays Labs Test 08/10/24 20:10 08/10/24 17:11 Range/Units Magnesium Level 2.1 1.6-2.6 mg/dL Direct Bilirubin 1.4 H <0.3 mg/dL Troponin I High Sensitivity 55 *H </=54 ng/L Triglycerides Level 86 < 150 mg/dL Cholesterol Level 164 < 200 mg/dL LDL Cholesterol 116 H < 100 mg/dL HDL Cholesterol 36 L 40-59 mg/dL Thyroid Stimulating Hormone (TSH) 8.22 H 0.55-4.78 uIU/mL White Blood Count 8.3 4.4-10.8 10^3/uL Red Blood Count 5.66 4.5-5.90 10^6/uL Hemoglobin 17.1 13.5-17.5 g/dL Hematocrit 51.1 41.0-53.0 % Mean Corpuscular Volume 90.2 80.0-100.0 fL Mean Corpuscular Hemoglobin 30.3 28.0-32.0 pg Mean Corpuscular Hemoglobin Concent 33.6 32.0-36.0 g/dL Red Cell Distribution Width 20.3 H 11.8-14.3 % Platelet Count 183 140-450 10^3/uL Mean Platelet Volume 9.8 6.9-10.8 fL Neutrophils (%) (Auto) 70.1 37.0-80.0 % Lymphocytes (%) (Auto) 18.3 10.0-50.0 % Monocytes (%) (Auto) 9.7 0.0-12.0 % Eosinophils (%) (Auto) 1.0 0.0-7.0 % Basophils (%) (Auto) 0.9 0.0-2.0 % Neutrophils # (Auto) 5.8 1.6-8.6 10 ^3/uL Lymphocytes # (Auto) 1.5 0.4-5.4 10 ^3/uL Monocytes # (Auto) 0.8 0-1.3 10 ^3/uL Eosinophils # (Auto) 0.1 0-0.8 10 ^3/uL Basophils # (Auto) 0.1 0-0.2 10 ^3/uL Nucleated Red Blood Cells 0.2 % Prothrombin Time 14.8 H 9.3-11.8 sec Prothrombin Time INR 1.45 H 0.9-1.15 Activated Partial Thromboplast Time 28.8 24.5-34.5 SEC Sodium Level 138 136-145 mmol/L Potassium Level 4.1 3.5-5.1 mmol/L Chloride Level 106 98-107 mmol/L Carbon Dioxide Level 20 20-31 mmol/L Anion Gap 12 5-15 Blood Urea Nitrogen 24 H 9-23 mg/dL Creatinine 1.23 0.700-1.30 mg/dL Glomerular Filtration Rate Calc 64 >90 mL/min BUN/Creatinine Ratio 19.5 10.0-20.0 Serum Glucose 89 74-106 mg/dL Hemoglobin A1c 6.4 H <5.7 % A1C Calcium Level 9.6 8.7-10.4 mg/dL Total Bilirubin 2.7 H 0.2-1.0 mg/dL Aspartate Amino Transferase (AST) 34 13-40 U/L Alanine Aminotransferase (ALT) 14 7-40 U/L Alkaline Phosphatase 120 H 46-116 U/L B-Type Natriuretic Peptide 1827.97 0-100 pg/mL Total Protein 6.5 5.7-8.2 g/dL Albumin 4.2 3.2-4.8 g/dL Assessment/Plan Assessment/Plan #Acute exacerbate systolic heart failure #H/o apical thrombus (2019) no anticoagulation? #CAD sp LAD 1 stent 2019 #Atrial fibrilation #NSTEMI likely type 2 #Prediabetes #Hypothyroidism #Hypertesnion #Psoriasis? #H/o shingles? #Hepatic steatosis #Right pleural efussion #Transaminitis #Chronic cholecystitis? #Cholelithiasis #CKD stage 1 #Bilateral inguinal lymph nodes. Largest on the right measures 3.3 cm. Largest on the left measures 3.2 cm. #Pneumonia? #Hypothyroidism #Diarrhea #RBBB Admit NPO Telemetry Furosemide IV Enoxaparin 80 mg SC BID Aspirin Entresto 50 mg BID Spironolactone 25 mg PO Ceftriaxone IV Metronidazole IV Dr Savage consult: cardiology Wound consult: multiple open wounds Case discussed with Dr Paris Full code Plan discussed with: Patient, Other (rn) My Orders Orders - MIGUEL ANGEL HDEZ RESIDENT Procedure Category Date Status Time Admit ADMIT 08/10/24 Transmitted 21:06 Code Status CODE 08/10/24 Transmitted 21:06 Vital Signs ALISSA 08/10/24 In Process 21:06 Review Orders With ALISSA 08/10/24 In Process Adm. 21:06 Consistent DIET 08/11/24 Transmitted Carb([facility])Diabetes Breakfast Notify Of Changes ALISSA 08/10/24 In Process From Base 21:06 Advance Directive ALISSA 08/10/24 In Process 21:06 Echo 2d Mode Cardiac US 08/10/24 Logged DOP 21:06 Patient Condition ORDERS 08/10/24 Transmitted 21:06 Allergies ALISSA 08/10/24 In Process 21:06 Aspirin Tablet PHA 08/10/24 In Process 21:15 Furosemide Injection PHA 08/11/24 In Process (Lasix Injection) 10:00 *Consult Dr. 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
[2024-08-11 00:42] LABS: Free T3 2.05 pg/mL (2.3-4.2); Free T4 (Free Thyroxine) 1.13 ng/dL (0.89-1.76)
[2024-08-11 01:55] VITALS: PULSE 66; RESP 14; O2SAT 99
[2024-08-11] MEDS: FUROSEMIDE 40 MG/4 ML VIAL IV ONE (02:27)
[2024-08-11] MEDS: ATORVASTATIN 20 MG TAB PO SCH (02:27)
[2024-08-11] MEDS: metroNIDAZOLE 500MG/100ML 100 ML IV SCH (02:28)
[2024-08-11] MEDS: ENOXAPARIN SOD 80 MG/0.8ML SYRINGE SC SCH (02:28)
[2024-08-11] MEDS: SACUBITRIL-VALSARTAN 24mg/26mg TAB PO SCH (02:28)
[2024-08-11 03:27] LABS: Erythrocyte Sedimentation Rate 1 mm/hr (0-20)
[2024-08-11] MEDS: cefTRIAXone 1GM/50ML D5W 50 ML IV SCH (03:29)
[2024-08-11 03:43] LABS: Urine Bacteria None Seen /hpf (None Seen)
[2024-08-11 04:17] LABS: Opiate Scree,Urine Neg (NEGATIVE)
[2024-08-11 04:18] LABS: Amphetamine Screen, Urine Neg (NEGATIVE); Barbiturate Scree,Urine Neg (NEGATIVE); Benzodiazephine Screen, Urine Neg (NEGATIVE); Cannabinoid Screen, Urine Neg (NEGATIVE); Cocaine Screen, Urine Neg (NEGATIVE); Phencyclidine Screen, Urine Neg (NEGATIVE)
[2024-08-11 04:20] LABS: Urine Blood Negative /uL (Negative); Urine Clarity Clear (Clear); Urine Color Yellow (Yellow); Urine Hyaline Cast FEW /lpf (0 - 2); Urine Protein, UAD TRACE (Negative); Urine Specific Gravity 1.012 (1.001-1.035); Urine Squamous Epithelial Cell None Seen /hpf (<5); Urine Urobilinogen Normal (Negative); Urine WBC < 1 /HPF (0-3)
[2024-08-11 05:25] LABS: Basophils # (auto) 0 10 ^3/uL (0-0.2); Basophils % (auto) 0.5 % (0.0-2.0); Eosinophils # (auto) 0.1 10 ^3/uL (0-0.8); Eosinophils % (auto) 1.5 % (0.0-7.0); Hematocrit 52.4 % (41.0-53.0); Hemoglobin 17.3 g/dL (13.5-17.5); Lymphocytes # (auto) 1.5 10 ^3/uL (0.4-5.4); Lymphocytes % (auto) 18.7 % (10.0-50.0); Mean Corpuscular Hgb Conc. 33.1 g/dL (32.0-36.0); Mean Corpuscular Volume 90.5 fL (80.0-100.0); Monocytes # (auto) 0.8 10 ^3/uL (0-1.3); Monocytes % (auto) 9.9 % (0.0-12.0); Neutrophils # (auto) 5.6 10 ^3/uL (1.6-8.6); Neutrophils % (auto) 69.4 % (37.0-80.0); Nucleated Red Blood Cells % 0.3 %; Platelet Count (auto) 161 10^3/uL (140-450); Red Blood Cells 5.79 10^6/uL (4.5-5.90); Red Cell Distribution Width 20.2 % (11.8-14.3); White Blood Cell 8.1 10^3/uL (4.4-10.8)
[2024-08-11 05:43] LABS: Alanine Aminotransferase 14 U/L (7-40); Albumin 3.9 g/dL (3.2-4.8); Alkaline Phosphatase 110 U/L (46-116); Anion Gap 15 (5-15); Aspartate Aminotransferase 34 U/L (13-40); BUN/Creatinine Ratio 18.3 (10.0-20.0); Bilirubin, Total 2.9 mg/dL (0.2-1.0); Blood Urea Nitrogen 20 mg/dL (9-23); Calcium 8.9 mg/dL (8.7-10.4); Carbon Dioxide 21 mmol/L (20-31); Chloride 104 mmol/L (98-107); Glucose 89 mg/dL (74-106); Potassium 4.5 mmol/L (3.5-5.1); Sodium 140 mmol/L (136-145); Total Protein 6.1 g/dL (5.7-8.2)
[2024-08-11] MEDS: LEVOTHYROXINE SODIUM 25 MCG TAB PO SCH (06:00)
[2024-08-11 07:36] VITALS: PULSE 71; RESP 15; O2SAT 100
[2024-08-11] MEDS: FUROSEMIDE 40 MG/4 ML VIAL IV SCH (07:53)
[2024-08-11] MEDS: SPIRONOLACTONE 25 MG TAB PO SCH (07:55)
[2024-08-11] MEDS ORDERED: VANCOMYCIN PER PHARMACY 0 MG IV SCH (15:15)
--- NOTE | 2024-08-11 15:17 | DVHPN2 ---
Progress Note Date Seen: August 11, 2024 Medical Necessity Reason Pt with a Central, PICC or Fol: No Subjective Patient reports: No new complaints Review of Systems: HEENT:Normal, CVS:Normal, RESPIRATORY:Normal, GI:Normal, :Normal, MSK:Normal, NEURO:Normal Objective vital signs Vital Sign Date Time Temp Pulse Resp B/P (MAP) Pulse Ox O2 Delivery O2 Flow Rate FiO2 08/11/24 12:00 98.0 67 14 119/78 (92) 98 98.0 08/11/24 07:36 Room Air* 0 21 medications Current Medications Medications Dose Ordered Sig/Bakari Route Start Time Stop Time Status Last Admin Dose Admin Enoxaparin Sodium 80 mg BID SC 08/10/24 22:00 08/11/24 07:53 80 MG Aspirin 81 mg DAILY PO 08/10/24 21:15 08/11/24 07:53 81 MG Furosemide 40 mg DAILY IV 08/11/24 10:00 08/11/24 07:53 40 MG Atorvastatin Calcium 40 mg HS PO 08/10/24 22:00 08/11/24 02:27 40 MG Ceftriaxone Sodium 50 ml @ 100 mls/hr DAILY@09 IV 08/11/24 00:15 08/11/24 07:53 100 MLS/HR Metronidazole 100 ml @ 100 mls/hr Q8HR IV 08/11/24 00:15 08/11/24 14:48 100 MLS/HR Spironolactone 25 mg DAILY PO 08/11/24 10:00 08/11/24 07:55 25 MG Sacubitril/ Valsartan 1 tab BID PO 08/11/24 00:30 08/11/24 07:53 1 TAB Levothyroxine Sodium 25 mcg QAM@0600 PO 08/11/24 06:00 08/11/24 06:00 25 MCG Examination: GENERAL:Normal, HEENT:Normal, NECK:Normal, LUNGS:Normal, CVS:Normal, ABDOMEN:Normal, MSK:Normal, MSK:Abnormal (redness and ulcers on right thigh, scrotal ulcers, scrotal swelling), SKIN:Normal, NEURO:Normal, :Normal laboratory and microbiology Laboratory Tests 08/11/24 04:40 Test 08/11/24 04:40 Range/Units Serum Glucose 89 74-106 mg/dL Problem List/Assessment/Plan Problem List/Assessment/Plan #1 acute on chronic systolic heart failure: lasix iv #2 cad s/p stent #3 a fib with hypercoagulable state #4 psoriasis #5 hypothyroidism #6 gallstones #7 ? right pneumonia/atelectasis: repeat chest xray in am #8 non compliance #9 cellulitis right thigh/scrotum: iv antibiotics advance care planning- full code- time spent 19 mins Plan discussed with: Patient Date of Service: August 11, 2024 Billing Provider: HILLARY HUSTON MD Common Visit Codes: [id number] INP/OBS CARE(HIGH) Secondary Visit Codes: [id number] CARE PLAN 30 MINUTES HILLARY HUSTON MD August 11, 2024 15:17
[2024-08-11] MEDS: VANCOMYCIN 1GM/200ML PM 200 ML IV ONE (16:57)
[2024-08-11 18:55] VITALS: BP 117/79; PULSE 77; RESP 18; TEMP 97.4; O2SAT 99
[2024-08-11 19:22] VITALS: BP 117/79; PULSE 69; PULSE 77; RESP 17; RESP 18; TEMP 97.4; O2SAT 98; O2SAT 99
[2024-08-11 20:00] VITALS: PULSE 69; PULSE 80; RESP 17; O2SAT 98
[2024-08-11 21:00] VITALS: BP 100/67; PULSE 69; RESP 17; TEMP 97.5; O2SAT 98
[2024-08-12] VITALS (8 sets, daily range): BP systolic 99–114; BP diastolic 64–75; PULSE 61–74; RESP 17–20; TEMP 97.4–98.6; O2SAT 92–100
--- NOTE | 2024-08-12 | DVHSR ---
APPROVED REPORT EXAM: Two-dimensional and M-mode echocardiogram with Doppler and color Doppler. Blood Pressure: 122/72 mmHg INDICATION heart failure CAD RISK FACTORS Height: 69, Weight: 191 DIMENSIONS LVDd6.2 (3.8-5.7cm)LA (2D)4.9 (1.9-4.0cm)Aortic Root3.8 (2.0-3.7cm) LVDs5.6 (2.5-4.0cm)LA (MM) (1.9-4.0cm)Aortic Cusp Exc1.5 (1.5-2.0cm) EF (%) 21.0 (55-70%)Rt. Atrium5.6 (1.9-4.0cm)Asc. Aorta cm IVSd1.1 (0.7-1.1cm)RV (D) (1.8-2.4cm) PWd1.4 (0.7-1.1cm) Mitral Valve MitralMitral Stenosis E wave0.54m/sMV Mean GR.1mmHg A wave0.45m/sMV Peak GR.73mmHg E/A ratio1.22D MVAcm2 DECEL [id number] 1/2 [id number] IVRTmsDop MVA3.24cm2 Aortic Valve Aortic ValveAortic Stenosis V10.51m/Shannon Mean GR.2mmHg V20.88m/Shannon Peak GR.3mmHg LVOT Diameter2.1 (1.8-2.4cm)Doppler AVA2.01cm2 Pulmonic Valve V20.60m/s Tricuspid Valve TR Velocity3.09m/s [id number] Conclusion Left ventricular dilated Left ventricular systolic function is severely depressed Ejection fraction was estimated at 15% Left atrium is severely dilated There is moderate mitral regurgitation There is [id number] tricuspid regurgitation There is moderate pulmonary hypertension estimated at 58 mm of mercury There is small pericardial effusion
[2024-08-12] MEDS: VANCOMYCIN 1GM/200ML PM 200 ML IV SCH (05:41)
[2024-08-12] MEDS ORDERED: IBUP-1454 PO (07:23)
[2024-08-12 07:43] LABS: Anion Gap 12 (5-15); Carbon Dioxide 22 mmol/L (20-31); Chloride 103 mmol/L (98-107); Potassium 4.2 mmol/L (3.5-5.1); Sodium 137 mmol/L (136-145)
[2024-08-12 07:44] LABS: Calcium 9.5 mg/dL (8.7-10.4)
[2024-08-12 07:46] LABS: Basophils # (auto) 0.1 10 ^3/uL (0-0.2); Lymphocytes # (auto) 1.8 10 ^3/uL (0.4-5.4); Monocytes # (auto) 1.1 10 ^3/uL (0-1.3); Neutrophils # (auto) 5.8 10 ^3/uL (1.6-8.6)
[2024-08-12 07:48] LABS: Basophils % (auto) 1.3 % (0.0-2.0); Eosinophils # (auto) 0.3 10 ^3/uL (0-0.8); Eosinophils % (auto) 2.8 % (0.0-7.0); Glucose 75 mg/dL (74-106); Hematocrit 53.7 % (41.0-53.0); Hemoglobin 18.1 g/dL (13.5-17.5); Lymphocytes % (auto) 19.9 % (10.0-50.0); Mean Corpuscular Hemoglobin 30.6 pg (28.0-32.0); Mean Corpuscular Hgb Conc. 33.7 g/dL (32.0-36.0); Mean Corpuscular Volume 90.8 fL (80.0-100.0); Nucleated Red Blood Cells % 0.1 %; Platelet Count (auto) 172 10^3/uL (140-450); Red Blood Cells 5.91 10^6/uL (4.5-5.90); White Blood Cell 9.1 10^3/uL (4.4-10.8)
[2024-08-12 07:49] LABS: BUN/Creatinine Ratio 16.7 (10.0-20.0); Blood Urea Nitrogen 17 mg/dL (9-23); Magnesium 1.9 mg/dL (1.6-2.6)
[2024-08-12 07:53] LABS: Red Cell Distribution Width 20.2 % (11.8-14.3)
--- NOTE | 2024-08-12 09:24 | DVHPN2 ---
Progress Note - Dictate Date Seen: August 11, 2024 Medical Necessity Reason Pt with a Central, PICC or Fol: No Subjective PT WITH HX OF ORGANIC HD CAD HFrEF S/P PTCA STENT AFIB HYPERCOAGULABLE STATE PSORIASIS CELLULITIS POSSIBLE INFILTRATIVE PROCESS IN LUNG NOW WITH ELEVATED BNP NEGATIVE TROPONIN GALLSTONES ASCITES RIGHT PLEURAL EFFUSION WITH ATELECTASIS INGUINAL ADENOPATHY vital signs Vital Sign Date Time Temp Pulse Resp B/P (MAP) Pulse Ox O2 Delivery O2 Flow Rate FiO2 08/12/24 05:00 97.4 68 17 107/71 (83) 99 97.4 08/11/24 20:00 Room Air* 0 21 Total Intake and Output 08/11/24 08/11/24 08/12/24 15:00 23:00 07:00 Intake Total 150 ml 700 ml 850 ml Output Total 2600 ml 575 ml Balance 150 ml -1900 ml 275 ml medications Current Medications Medications Dose Ordered Sig/Bakari Route Start Time Stop Time Status Last Admin Dose Admin Enoxaparin Sodium 80 mg BID SC 08/10/24 22:00 08/11/24 22:37 80 MG Aspirin 81 mg DAILY PO 08/10/24 21:15 08/11/24 07:53 81 MG Furosemide 40 mg DAILY IV 08/11/24 10:00 08/11/24 07:53 40 MG Atorvastatin Calcium 40 mg HS PO 08/10/24 22:00 08/11/24 22:37 40 MG Ceftriaxone Sodium 50 ml @ 100 mls/hr DAILY@09 IV 08/11/24 00:15 08/11/24 07:53 100 MLS/HR Metronidazole 100 ml @ 100 mls/hr Q8HR IV 08/11/24 00:15 08/12/24 06:45 100 MLS/HR Spironolactone 25 mg DAILY PO 08/11/24 10:00 08/11/24 07:55 25 MG Sacubitril/ Valsartan 1 tab BID PO 08/11/24 00:30 08/11/24 22:37 1 TAB Levothyroxine Sodium 25 mcg QAM@0600 PO 08/11/24 06:00 08/12/24 05:41 25 MCG Metoprolol Succinate 25 mg DAILY PO 08/12/24 10:00 Vancomycin HCl 0 ml @ 0 mls/hr UD IV 5/15/25 15:15 Vancomycin HCl 200 ml @ 200 mls/hr Q12H IV 08/12/24 05:00 08/12/24 05:41 200 MLS/HR laboratory and microbiology Laboratory Tests 08/12/24 06:49 Test 08/12/24 06:49 Range/Units Serum Glucose 75 74-106 mg/dL Problem List HX OF ORGANIC HD CAD HFrEF ACUTE DECOMPENSATION S/P PTCA STENT AFIB HYPERCOAGULABLE STATE PSORIASIS CELLULITIS POSSIBLE INFILTRATIVE PROCESS IN LUNG NOW WITH ELEVATED BNP NEGATIVE TROPONIN GALLSTONES ASCITES RIGHT PLEURAL EFFUSION WITH ATELECTASIS INGUINAL ADENOPATHY HYPOTHYROIDISM Assessment/Plan ECHO AGREE WITH LASIX ENTRESTO ALDACTONE BETA HERI ABX NO NEED FOR LHC AT THIS TIME ESPECIALLY WITH GROIN INFECTION Plan discussed with: Patient BETTE CARMEN MD August 12, 2024 09:24
[2024-08-12] MEDS: METOPROLOL SUCCINATE XL 50 MG TAB PO SCH (10:22)
--- NOTE | 2024-08-12 11:20 | DVH ---
INDICATION: CHF TECHNIQUE: Frontal view of the chest. COMPARISON: CHEST PORTABLE on DOS: 01/17/20 FINDINGS: . Cardiomegaly. There is no evidence of pleural disease. The lungs are clear. The bony structures of the chest are intact without fracture. IMPRESSION: Cardiomegaly with CHF.
--- NOTE | 2024-08-12 13:05 | DVHPN2 ---
Progress Note - Dictate Date Seen: August 12, 2024 Medical Necessity Reason Pt with a Central, PICC or Fol: No Subjective PT WITH HX OF ORGANIC HD CAD HFrEF S/P PTCA STENT AFIB HYPERCOAGULABLE STATE PSORIASIS CELLULITIS POSSIBLE INFILTRATIVE PROCESS IN LUNG NOW WITH ELEVATED BNP NEGATIVE TROPONIN GALLSTONES ASCITES RIGHT PLEURAL EFFUSION WITH ATELECTASIS INGUINAL ADENOPATHY vital signs Vital Sign Date Time Temp Pulse Resp B/P (MAP) Pulse Ox O2 Delivery O2 Flow Rate FiO2 08/12/24 10:22 68 117/76 08/12/24 09:00 97.5 18 95 97.5 08/11/24 20:00 Room Air* 0 21 Total Intake and Output 08/11/24 08/11/24 08/12/24 15:00 23:00 07:00 Intake Total 150 ml 700 ml 850 ml Output Total 2600 ml 575 ml Balance 150 ml -1900 ml 275 ml medications Current Medications Medications Dose Ordered Sig/Bakari Route Start Time Stop Time Status Last Admin Dose Admin Enoxaparin Sodium 80 mg BID SC 08/10/24 22:00 08/11/24 22:37 80 MG Aspirin 81 mg DAILY PO 08/10/24 21:15 08/12/24 10:21 81 MG Furosemide 40 mg DAILY IV 08/11/24 10:00 08/12/24 10:21 40 MG Atorvastatin Calcium 40 mg HS PO 08/10/24 22:00 08/11/24 22:37 40 MG Ceftriaxone Sodium 50 ml @ 100 mls/hr DAILY@09 IV 08/11/24 00:15 08/12/24 10:20 100 MLS/HR Metronidazole 100 ml @ 100 mls/hr Q8HR IV 08/11/24 00:15 08/12/24 06:45 100 MLS/HR Spironolactone 25 mg DAILY PO 08/11/24 10:00 08/12/24 10:21 25 MG Sacubitril/ Valsartan 1 tab BID PO 08/11/24 00:30 08/12/24 10:32 1 TAB Levothyroxine Sodium 25 mcg QAM@0600 PO 08/11/24 06:00 08/12/24 05:41 25 MCG Metoprolol Succinate 25 mg DAILY PO 08/12/24 10:00 08/12/24 10:22 25 MG Vancomycin HCl 0 ml @ 0 mls/hr UD IV 08/11/24 15:15 Vancomycin HCl 200 ml @ 200 mls/hr Q12H IV 08/12/24 05:00 08/12/24 05:41 200 MLS/HR laboratory and microbiology Laboratory Tests 08/12/24 06:49 Test 08/12/24 06:49 Range/Units Serum Glucose 75 74-106 mg/dL Problem List HX OF ORGANIC HD CAD HFrEF ACUTE DECOMPENSATION S/P PTCA STENT AFIB HYPERCOAGULABLE STATE PSORIASIS CELLULITIS POSSIBLE INFILTRATIVE PROCESS IN LUNG NOW WITH ELEVATED BNP NEGATIVE TROPONIN GALLSTONES ASCITES RIGHT PLEURAL EFFUSION WITH ATELECTASIS INGUINAL ADENOPATHY HYPOTHYROIDISM Assessment/Plan ECHO AGREE WITH LASIX ENTRESTO ALDACTONE BETA HERI ABX NO NEED FOR LHC AT THIS TIME ESPECIALLY WITH GROIN INFECTION EF <15% PT NEEDS AICD BUT IS RELUCTANT WILL DISCUSS OUTPATIENT Plan discussed with: Patient BETTE CARMEN MD August 12, 2024 13:05
[2024-08-12] MEDS: NAPROXEN 500 MG TAB PO ONE (16:53)
--- NOTE | 2024-08-12 17:03 | DVHPN2 ---
Subjective appears to be doing ok. conversating, presenting his complains. giving limitations on exam. Reviewed: H&P Changes from previous H/P or p: No Changes General: Per HPI Objective Vitals Vital Signs Date Time Temp Pulse Resp B/P (MAP) Pulse Ox O2 Delivery O2 Flow Rate FiO2 08/12/24 16:38 98.5 61 20 99/65 (76) 95 98.5 08/12/24 08:00 Room Air* 0 21 Intake/Output Intake and Output 08/12/24 07:00 Intake Total 1700 ml Output Total 3175 ml Balance -1475 ml Intake Oral 1150 ml IV Total 550 ml Output Urine Total 3175 ml Exam Examination: GENERAL:Normal, HEENT:Normal, NECK:Normal, LUNGS:Normal, CVS:Normal, ABDOMEN:Normal, MSK:Normal, MSK:Abnormal (redness and ulcers on right thigh, scrotal ulcers, scrotal swelling), SKIN:Normal, NEURO:Normal, :Normal Medications Current Medications Medications Dose Ordered Sig/Bkaari Route Start Time Stop Time Status Last Admin Dose Admin Enoxaparin Sodium 80 mg BID SC 08/10/24 22:00 08/11/24 22:37 80 MG Aspirin 81 mg DAILY PO 08/10/24 21:15 08/12/24 10:21 81 MG Furosemide 40 mg DAILY IV 08/11/24 10:00 08/12/24 10:21 40 MG Atorvastatin Calcium 40 mg HS PO 08/10/24 22:00 08/11/24 22:37 40 MG Ceftriaxone Sodium 50 ml @ 100 mls/hr DAILY@09 IV 08/11/24 00:15 08/12/24 10:20 100 MLS/HR Metronidazole 100 ml @ 100 mls/hr Q8HR IV 08/11/24 00:15 08/12/24 14:26 100 MLS/HR Spironolactone 25 mg DAILY PO 08/11/24 10:00 08/12/24 10:21 25 MG Sacubitril/ Valsartan 1 tab BID PO 08/11/24 00:30 08/12/24 10:32 1 TAB Levothyroxine Sodium 25 mcg QAM@0600 PO 08/11/24 06:00 08/12/24 05:41 25 MCG Metoprolol Succinate 25 mg DAILY PO 08/12/24 10:00 08/12/24 10:22 25 MG Vancomycin HCl 0 ml @ 0 mls/hr UD IV 08/11/24 15:15 Vancomycin HCl 200 ml @ 200 mls/hr Q12H IV 08/12/24 05:00 08/12/24 16:53 200 MLS/HR Ibuprofen 400 mg BID PRN PO 08/12/24 22:00 Laboratory Results Laboratory Tests 08/12/24 06:49 Chemistry Test 08/12/24 06:49 Calcium Level 9.5 mg/dL (8.7-10.4) Magnesium Level 1.9 mg/dL (1.6-2.6) Urinalysis Test 08/11/24 03:40 Urine Color Yellow (Yellow) Urine Clarity Clear (Clear) Urine pH 5.0 (5.0-9.0) Urine Specific [place] 1.012 (1.001-1.035) Urine Protein Trace (Negative) H Urine Ketones Negative (Negative) Urine Blood Negative /uL (Negative) Urine Nitrite Negative (Negative) Urine Bilirubin Negative (Negative) Urine Urobilinogen Normal mg/dL (Negative) Urine Leukocyte Esterase Negative /uL (Negative) Urine RBC 1 /hpf (0 - 3) Urine Microscopic WBC < 1 /HPF (0-3) Urine Squamous Epithelial Cells None seen /hpf (<5) Urine Bacteria None seen /hpf (None Seen) Urine Hyaline Casts Few /lpf (0 - 2) Urine Glucose Normal mg/dL (Normal) Labs and/or images reviewed: Labs reviewed by me, Image(s) reviewed by me Assessment/Plan Assessment/Plan #1 acute on chronic systolic heart failure: lasix iv bid. cont gdmt per cardiolgy recs. #2 cad s/p stent #3 a fib with hypercoagulable state- full dose lovenox. bid. osteoarthritis - prn ibuprofen. #4 psoriasis #5 hypothyroidism - home synthroid 25mcg #6 gallstones #7 ? right pneumonia/atelectasis: cont abx . ctx/metro. #8 non compliance #9 cellulitis right thigh/scrotum: iv antibiotics cardiac diet dvt ppx - lovenox FD bid gi ppx - tolerating po tele full code Plan discussed with: Patient My Orders Orders - MICHAEL SINGER MD Procedure Category Date Status Time Ibuprofen Tablet PHA 08/12/24 In Process (Motrin Tablet) 22:00 Date of Service: August 12, 2024 Billing Provider: MICHAEL SINGER MD Common Visit Codes: [id number] INP/OBS CARE(HIGH) MICHAEL SINGER MD August 12, 2024 17:02
[2024-08-12] MEDS ORDERED: IBUPROFEN 400 MG TAB PO PRN (22:00)
[2024-08-13] VITALS (8 sets, daily range): BP systolic 99–117; BP diastolic 65–81; PULSE 60–73; RESP 16–18; TEMP 96.3–97.6; O2SAT 95–99
[2024-08-13 07:11] LABS: Alanine Aminotransferase 14 U/L (7-40); Albumin 3.8 g/dL (3.2-4.8); Alkaline Phosphatase 103 U/L (46-116); Anion Gap 15 (5-15); Aspartate Aminotransferase 35 U/L (13-40); BUN/Creatinine Ratio 20.2 (10.0-20.0); Blood Urea Nitrogen 22 mg/dL (9-23); Calcium 8.7 mg/dL (8.7-10.4); Chloride 101 mmol/L (98-107); Glucose 80 mg/dL (74-106); Magnesium 1.7 mg/dL (1.6-2.6); Potassium 4.4 mmol/L (3.5-5.1); Sodium 136 mmol/L (136-145); Total Protein 5.7 g/dL (5.7-8.2)
[2024-08-13 07:12] LABS: Phosphorus 3.8 mg/dL (2.4-5.1)
[2024-08-13 07:24] LABS: Bilirubin, Total 2.3 mg/dL (0.2-1.0); Carbon Dioxide 20 mmol/L (20-31)
--- NOTE | 2024-08-13 15:05 | DVHPN2 ---
Subjective appears to be doing ok. conversating, presenting his complains. Appears doing better spirits Reviewed: H&P Changes from previous H/P or p: No Changes General: Per HPI Objective Vitals Vital Signs Date Time Temp Pulse Resp B/P (MAP) Pulse Ox O2 Delivery O2 Flow Rate FiO2 08/13/24 13:00 96.3 68 16 112/76 (88) 96 96.3 08/13/24 08:05 Room Air* 0 21 Intake/Output Intake and Output 08/13/24 07:00 Intake Total 2270 ml Output Total 1675 ml Balance 595 ml Intake Oral 1820 ml IV Total 450 ml Output Urine Total 1675 ml Exam GEN: Healthy appearing, well-developed, NAD. HEENT: NC/AT; MMM. CV: RRR, no m/r/g. LUNGS: CTAB, no w/r/c. ABD: Soft, NT/ND, NBS, no masses or organomegaly. EXT: skin Warm, well perfused. no rashes. No clubbing, cyanosis, or edema. redness and ulcers on right thigh, scrotal ulcers, scrotal swelling NEURO: Ambulating with no limitations. No focal deficits. Medications Current Medications Medications Dose Ordered Sig/Bakari Route Start Time Stop Time Status Last Admin Dose Admin Enoxaparin Sodium 80 mg BID SC 08/10/24 22:00 08/13/24 09:39 80 MG Aspirin 81 mg DAILY PO 08/10/24 21:15 08/13/24 09:39 81 MG Furosemide 40 mg DAILY IV 08/11/24 10:00 08/13/24 09:38 40 MG Atorvastatin Calcium 40 mg HS PO 08/10/24 22:00 08/12/24 22:21 40 MG Ceftriaxone Sodium 50 ml @ 100 mls/hr DAILY@09 IV 08/11/24 00:15 08/13/24 09:36 100 MLS/HR Metronidazole 100 ml @ 100 mls/hr Q8HR IV 08/11/24 00:15 08/13/24 13:46 100 MLS/HR Spironolactone 25 mg DAILY PO 08/11/24 10:00 08/13/24 09:39 25 MG Sacubitril/ Valsartan 1 tab BID PO 08/11/24 00:30 08/13/24 09:39 1 TAB Levothyroxine Sodium 25 mcg QAM@0600 PO 08/11/24 06:00 08/13/24 06:38 25 MCG Metoprolol Succinate 25 mg DAILY PO 08/12/24 10:00 08/13/24 09:55 25 MG Vancomycin HCl 0 ml @ 0 mls/hr UD IV 08/11/24 15:15 Vancomycin HCl 200 ml @ 200 mls/hr Q12H IV 08/12/24 05:00 08/13/24 08:40 200 MLS/HR Ibuprofen 400 mg BID PRN PO 08/12/24 22:00 Laboratory Results Laboratory Tests 08/12/24 06:49 08/13/24 05:34 Chemistry Test 08/13/24 05:34 Albumin 3.8 g/dL (3.2-4.8) Calcium Level 8.7 mg/dL (8.7-10.4) Magnesium Level 1.7 mg/dL (1.6-2.6) Phosphorus Level 3.8 mg/dL (2.4-5.1) Total Protein 5.7 g/dL (5.7-8.2) LFT Test 08/13/24 05:34 Alanine Aminotransferase (ALT) 14 U/L (7-40) Alkaline Phosphatase 103 U/L (46-116) Aspartate Amino Transferase (AST) 35 U/L (13-40) Total Bilirubin 2.3 mg/dL (0.2-1.0) H Urinalysis Test 08/11/24 03:40 Urine Color Yellow (Yellow) Urine Clarity Clear (Clear) Urine pH 5.0 (5.0-9.0) Urine Specific [place] 1.012 (1.001-1.035) Urine Protein Trace (Negative) H Urine Ketones Negative (Negative) Urine Blood Negative /uL (Negative) Urine Nitrite Negative (Negative) Urine Bilirubin Negative (Negative) Urine Urobilinogen Normal mg/dL (Negative) Urine Leukocyte Esterase Negative /uL (Negative) Urine RBC 1 /hpf (0 - 3) Urine Microscopic WBC < 1 /HPF (0-3) Urine Squamous Epithelial Cells None seen /hpf (<5) Urine Bacteria None seen /hpf (None Seen) Urine Hyaline Casts Few /lpf (0 - 2) Urine Glucose Normal mg/dL (Normal) Labs and/or images reviewed: Labs reviewed by me, Image(s) reviewed by me Assessment/Plan Assessment/Plan 5/17-patient improving, no pedal edema anymore. Still has rales lower lobes bilaterally. Erythema right thigh is improving, wounds and right thigh improving. Wound Care following, appreciate recommendations. Patient enquiring about LVAD, does not appear to be a current candidate would defer to outpatient cardiology following. We will continue wound care, continue IV antibiotics, continue diuresis. Labs stable today no signs of COLE or contraction alkalosis. #1 acute on chronic systolic heart failure: lasix iv bid. cont gdmt per cardiolgy recs. #2 cad s/p stent #3 a fib with hypercoagulable state- full dose lovenox. bid. osteoarthritis - prn ibuprofen. #4 psoriasis #5 hypothyroidism - home synthroid 25mcg #6 gallstones #7 ? right pneumonia/atelectasis: cont abx . ctx/metro. #8 non compliance #9 cellulitis right thigh/scrotum: iv antibiotics cardiac diet dvt ppx - lovenox FD bid gi ppx - tolerating po tele full code Plan discussed with: Patient My Orders Orders - MICHAEL SINGER MD Procedure Category Date Status Time Ibuprofen Tablet PHA 08/12/24 In Process (Motrin Tablet) 22:00 * Dietary Consult CONS 08/12/24 Transmitted 17:15 Cleanse Wound With ALISSA 08/12/24 In Process Wound Clean 13:35 Notify Provider NOTICE 08/13/24 Transmitted Malnutrition 09:34 Nutritional NOURISH 08/13/24 Transmitted Supplements 09:34 Dietary NOTICE 08/13/24 Transmitted Recommendations 09:34 Date of Service: August 13, 2024 Billing Provider: MICHAEL SINGER MD Common Visit Codes: [id number] INP/OBS CARE(HIGH) MICHAEL SINGER MD August 13, 2024 15:05
[2024-08-14] VITALS (9 sets, daily range): BP systolic 86–115; BP diastolic 54–69; PULSE 59–65; RESP 16–18; TEMP 97–99.1; O2SAT 95–99
[2024-08-14 06:28] LABS: Eosinophils # (auto) 0.2 10 ^3/uL (0-0.8); Eosinophils % (auto) 2.5 % (0.0-7.0); Monocytes # (auto) 0.8 10 ^3/uL (0-1.3)
[2024-08-14 06:30] LABS: Basophils # (auto) 0.2 10 ^3/uL (0-0.2); Basophils % (auto) 2.1 % (0.0-2.0); Hematocrit 54.3 % (41.0-53.0); Hemoglobin 18.5 g/dL (13.5-17.5); Lymphocytes # (auto) 1.9 10 ^3/uL (0.4-5.4); Lymphocytes % (auto) 24.9 % (10.0-50.0); Mean Corpuscular Hemoglobin 30.5 pg (28.0-32.0); Mean Corpuscular Hgb Conc. 34.1 g/dL (32.0-36.0); Mean Corpuscular Volume 89.4 fL (80.0-100.0); Monocytes % (auto) 10.7 % (0.0-12.0); Neutrophils # (auto) 4.5 10 ^3/uL (1.6-8.6); Neutrophils % (auto) 59.8 % (37.0-80.0); Nucleated Red Blood Cells % 0.3 %; Platelet Count (auto) 164 10^3/uL (140-450); Red Blood Cells 6.07 10^6/uL (4.5-5.90); Red Cell Distribution Width 20.7 % (11.8-14.3); White Blood Cell 7.5 10^3/uL (4.4-10.8)
[2024-08-14 06:42] LABS: Alanine Aminotransferase 16 U/L (7-40); Albumin 3.8 g/dL (3.2-4.8); Alkaline Phosphatase 107 U/L (46-116); Anion Gap 10 (5-15); Aspartate Aminotransferase 34 U/L (13-40); BUN/Creatinine Ratio 14.9 (10.0-20.0); Blood Urea Nitrogen 17 mg/dL (9-23); Calcium 9.4 mg/dL (8.7-10.4); Carbon Dioxide 26 mmol/L (20-31); Chloride 101 mmol/L (98-107); Glucose 78 mg/dL (74-106); Potassium 4.1 mmol/L (3.5-5.1); Sodium 137 mmol/L (136-145); Total Protein 6.1 g/dL (5.7-8.2)
[2024-08-14 06:48] LABS: Bilirubin, Total 2.3 mg/dL (0.2-1.0)
--- NOTE | 2024-08-14 13:36 | DVHPN2 ---
Subjective appears to be doing ok. conversating, presenting his complains. Appears doing better spirits. Continues to improve Reviewed: H&P Changes from previous H/P or p: No Changes General: Per HPI Objective Vitals Vital Signs Date Time Temp Pulse Resp B/P (MAP) Pulse Ox O2 Delivery O2 Flow Rate FiO2 08/14/24 12:33 97.2 59 16 86/54 (65) 95 97.2 08/14/24 08:12 Room Air* 0 21 Intake/Output Intake and Output 08/14/24 07:00 Intake Total 2895 ml Output Total 2200 ml Balance 695 ml Intake Oral 2045 ml IV Total 850 ml Output Urine Total 2200 ml Exam GEN: Healthy appearing, well-developed, NAD. HEENT: NC/AT; MMM. CV: RRR, no m/r/g. LUNGS: CTAB, no w/r/c. ABD: Soft, NT/ND, NBS, no masses or organomegaly. EXT: skin Warm, well perfused. no rashes. No clubbing, cyanosis, or edema. redness and ulcers on right thigh, scrotal ulcers, scrotal swelling NEURO: Ambulating with no limitations. No focal deficits. Medications Current Medications Medications Dose Ordered Sig/Bakari Route Start Time Stop Time Status Last Admin Dose Admin Enoxaparin Sodium 80 mg BID SC 08/10/24 22:00 08/14/24 09:58 80 MG Aspirin 81 mg DAILY PO 08/10/24 21:15 08/14/24 09:57 81 MG Furosemide 40 mg DAILY IV 08/11/24 10:00 08/13/24 09:38 40 MG Atorvastatin Calcium 40 mg HS PO 08/10/24 22:00 08/13/24 22:01 40 MG Ceftriaxone Sodium 50 ml @ 100 mls/hr DAILY@09 IV 08/11/24 00:15 08/14/24 09:28 100 MLS/HR Metronidazole 100 ml @ 100 mls/hr Q8HR IV 08/11/24 00:15 08/14/24 06:33 100 MLS/HR Spironolactone 25 mg DAILY PO 08/11/24 10:00 08/13/24 09:39 25 MG Sacubitril/ Valsartan 1 tab BID PO 08/11/24 00:30 08/14/24 09:57 1 TAB Levothyroxine Sodium 25 mcg QAM@0600 PO 08/11/24 06:00 08/14/24 06:34 25 MCG Metoprolol Succinate 25 mg DAILY PO 08/12/24 10:00 08/13/24 09:55 25 MG Vancomycin HCl 0 ml @ 0 mls/hr UD IV 08/11/24 15:15 Vancomycin HCl 200 ml @ 200 mls/hr Q12H IV 08/12/24 05:00 08/14/24 04:47 200 MLS/HR Ibuprofen 400 mg BID PRN PO 08/12/24 22:00 Laboratory Results Laboratory Tests 08/14/24 05:07 Chemistry Test 08/14/24 05:07 Albumin 3.8 g/dL (3.2-4.8) Calcium Level 9.4 mg/dL (8.7-10.4) Total Protein 6.1 g/dL (5.7-8.2) LFT Test 08/14/24 05:07 Alanine Aminotransferase (ALT) 16 U/L (7-40) Alkaline Phosphatase 107 U/L (46-116) Aspartate Amino Transferase (AST) 34 U/L (13-40) Total Bilirubin 2.3 mg/dL (0.2-1.0) H Urinalysis Test 08/11/24 03:40 Urine Color Yellow (Yellow) Urine Clarity Clear (Clear) Urine pH 5.0 (5.0-9.0) Urine Specific [place] 1.012 (1.001-1.035) Urine Protein Trace (Negative) H Urine Ketones Negative (Negative) Urine Blood Negative /uL (Negative) Urine Nitrite Negative (Negative) Urine Bilirubin Negative (Negative) Urine Urobilinogen Normal mg/dL (Negative) Urine Leukocyte Esterase Negative /uL (Negative) Urine RBC 1 /hpf (0 - 3) Urine Microscopic WBC < 1 /HPF (0-3) Urine Squamous Epithelial Cells None seen /hpf (<5) Urine Bacteria None seen /hpf (None Seen) Urine Hyaline Casts Few /lpf (0 - 2) Urine Glucose Normal mg/dL (Normal) Labs and/or images reviewed: Labs reviewed by me, Image(s) reviewed by me Assessment/Plan Assessment/Plan Update 08/13-patient improving, no pedal edema anymore. Still has rales lower lobes bilaterally. Erythema right thigh is improving, wounds and right thigh improving. Wound Care following, appreciate recommendations. Patient enquiring about LVAD, does not appear to be a current candidate would defer to outpatient cardiology following. We will continue wound care, continue IV antibiotics, continue diuresis. Labs stable today no signs of COLE or contraction alkalosis. 08/14- mild creatinine up trend, we will stop Lasix today. Continue IV antibiotics for right thigh cellulitis. Likely needs 1 more day antibiotics possible DC tomorrow with primary care team returns for weekday ongoing care #1 acute on chronic systolic heart failure: lasix iv bid. cont gdmt per cardiolgy recs. #2 cad s/p stent #3 a fib with hypercoagulable state- full dose lovenox. bid. osteoarthritis - prn ibuprofen. #4 psoriasis #5 hypothyroidism - home synthroid 25mcg #6 gallstones #7 ? right pneumonia/atelectasis: cont abx . ctx/metro. #8 non compliance #9 cellulitis right thigh/scrotum: iv antibiotics cardiac diet dvt ppx - lovenox FD bid gi ppx - tolerating po tele full code Plan discussed with: Patient Date of Service: August 14, 2024 Billing Provider: MICHAEL SINGER MD Common Visit Codes: [id number] INP/OBS CARE(HIGH) MICHAEL SINGER MD August 14, 2024 13:36
[2024-08-15] VITALS (7 sets, daily range): BP systolic 110–124; BP diastolic 71–79; PULSE 67–74; RESP 16–17; TEMP 96.3–97.7; O2SAT 93–96
[2024-08-15 10:47] LABS: Basophils # (auto) 0.1 10 ^3/uL (0-0.2); Lymphocytes # (auto) 1.4 10 ^3/uL (0.4-5.4); Monocytes # (auto) 0.8 10 ^3/uL (0-1.3); Red Blood Cells 6.24 10^6/uL (4.5-5.90)
[2024-08-15 10:48] LABS: Basophils % (auto) 1.4 % (0.0-2.0); Eosinophils # (auto) 0.2 10 ^3/uL (0-0.8); Eosinophils % (auto) 1.9 % (0.0-7.0); Hemoglobin 18.7 g/dL (13.5-17.5); Lymphocytes % (auto) 16.9 % (10.0-50.0); Mean Corpuscular Hgb Conc. 33.2 g/dL (32.0-36.0); Mean Corpuscular Volume 90.6 fL (80.0-100.0); Monocytes % (auto) 9.9 % (0.0-12.0); Neutrophils # (auto) 5.9 10 ^3/uL (1.6-8.6); Neutrophils % (auto) 69.9 % (37.0-80.0); Nucleated Red Blood Cells % 0.2 %; Platelet Count (auto) 175 10^3/uL (140-450); White Blood Cell 8.4 10^3/uL (4.4-10.8)
[2024-08-15 10:50] LABS: Hematocrit 56.5 % (41.0-53.0); Red Cell Distribution Width 20.6 % (11.8-14.3)
[2024-08-15 10:54] LABS: Chloride 103 mmol/L (98-107); Potassium 4.6 mmol/L (3.5-5.1)
[2024-08-15 10:55] LABS: Anion Gap 10 (5-15); Calcium 9.4 mg/dL (8.7-10.4); Carbon Dioxide 22 mmol/L (20-31)
[2024-08-15 11:00] LABS: BUN/Creatinine Ratio 12.9 (10.0-20.0); Blood Urea Nitrogen 13 mg/dL (9-23); Glucose 86 mg/dL (74-106); Sodium 135 mmol/L (136-145)
--- NOTE | 2024-08-15 11:54 | DVHDS2 ---
Discharge Summary Date of Admission August 10, 2024 at 21:06 Date of Discharge: August 15, 2024 Labs/Diagnostic Data: Laboratory Results Test 08/15/24 10:25 08/14/24 05:07 08/13/24 05:34 08/11/24 03:40 White Blood Count 8.4 10^3/uL (4.4-10.8) Red Blood Count 6.24 10^6/uL (4.5-5.90) Hemoglobin 18.7 g/dL (13.5-17.5) Hematocrit 56.5 % (41.0-53.0) Mean Corpuscular Volume 90.6 fL (80.0-100.0) Mean Corpuscular Hemoglobin 30.0 pg (28.0-32.0) Mean Corpuscular Hemoglobin Concent 33.2 g/dL (32.0-36.0) Red Cell Distribution Width 20.6 % (11.8-14.3) Platelet Count 175 10^3/uL (140-450) Mean Platelet Volume 9.5 fL (6.9-10.8) Neutrophils (%) (Auto) 69.9 % (37.0-80.0) Lymphocytes (%) (Auto) 16.9 % (10.0-50.0) Monocytes (%) (Auto) 9.9 % (0.0-12.0) Eosinophils (%) (Auto) 1.9 % (0.0-7.0) Basophils (%) (Auto) 1.4 % (0.0-2.0) Neutrophils # (Auto) 5.9 10 ^3/uL (1.6-8.6) Lymphocytes # (Auto) 1.4 10 ^3/uL (0.4-5.4) Monocytes # (Auto) 0.8 10 ^3/uL (0-1.3) Eosinophils # (Auto) 0.2 10 ^3/uL (0-0.8) Basophils # (Auto) 0.1 10 ^3/uL (0-0.2) Nucleated Red Blood Cells 0.2 % Sodium Level 135 mmol/L (136-145) Potassium Level 4.6 mmol/L (3.5-5.1) Chloride Level 103 mmol/L (98-107) Carbon Dioxide Level 22 mmol/L (20-31) Anion Gap 10 (5-15) Blood Urea Nitrogen 13 mg/dL (9-23) Creatinine 1.01 mg/dL (0.700-1.30) Glomerular Filtration Rate Calc 82 mL/min (>90) BUN/Creatinine Ratio 12.9 (10.0-20.0) Serum Glucose 86 mg/dL (74-106) Calcium Level 9.4 mg/dL (8.7-10.4) Total Bilirubin 2.3 mg/dL (0.2-1.0) Aspartate Amino Transferase (AST) 34 U/L (13-40) Alanine Aminotransferase (ALT) 16 U/L (7-40) Alkaline Phosphatase 107 U/L (46-116) Total Protein 6.1 g/dL (5.7-8.2) Albumin 3.8 g/dL (3.2-4.8) Phosphorus Level 3.8 mg/dL (2.4-5.1) Magnesium Level 1.7 mg/dL (1.6-2.6) Vancomycin Level Trough 15.7 ug/mL (5-10) Urine Color Yellow (Yellow) Urine Clarity Clear (Clear) Urine pH 5.0 (5.0-9.0) Urine Specific [place] 1.012 (1.001-1.035) Urine Protein Trace (Negative) Urine Ketones Negative (Negative) Urine Blood Negative /uL (Negative) Urine Nitrite Negative (Negative) Urine Bilirubin Negative (Negative) Urine Urobilinogen Normal mg/dL (Negative) Urine Leukocyte Esterase Negative /uL (Negative) Urine RBC 1 /hpf (0 - 3) Urine Microscopic WBC < 1 /HPF (0-3) Urine Squamous Epithelial Cells None seen /hpf (<5) Urine Bacteria None seen /hpf (None Seen) Urine Hyaline Casts Few /lpf (0 - 2) Urine Glucose Normal mg/dL (Normal) Urine Opiates Screen Neg (NEGATIVE) Urine Fentanyl Screen Neg (NEGATIVE) Urine Barbiturates Screen Neg (NEGATIVE) Urine Phencyclidine Screen Neg (NEGATIVE) Urine Amphetamines Screen Neg (NEGATIVE) Urine Benzodiazepines Screen Neg (NEGATIVE) Urine Cocaine Screen Neg (NEGATIVE) Urine Cannabinoids Screen Neg (NEGATIVE) Test 08/11/24 02:45 08/10/24 20:10 08/10/24 17:11 Erythrocyte Sedimentation Rate 1 mm/hr (0-20) Direct Bilirubin 1.4 mg/dL (<0.3) Troponin I High Sensitivity 55 ng/L (</=54) Triglycerides Level 86 mg/dL (< 150) Cholesterol Level 164 mg/dL (< 200) LDL Cholesterol 116 mg/dL (< 100) HDL Cholesterol 36 mg/dL (40-59) Thyroid Stimulating Hormone (TSH) 8.22 uIU/mL (0.55-4.78) Prothrombin Time 14.8 sec (9.3-11.8) Prothrombin Time INR 1.45 (0.9-1.15) Activated Partial Thromboplast Time 28.8 SEC (24.5-34.5) Hemoglobin A1c 6.4 % A1C (<5.7) C-Reactive Protein High Sensitivity 0.40 mg/dL (<1.0) B-Type Natriuretic Peptide 1827.97 pg/mL (0-100) Free Thyroxine (T4) Calculated 1.13 ng/dL (0.89-1.76) Free Triiodothyronine (T3) pg/mL 2.05 pg/mL (2.3-4.2) Hepatitis B Surface Antigen Negative (Negative) Hepatitis B Core IgM Antibody Negative (Negative) Hepatitis C Antibody Negative (Negative) Other Laboratory Tests 08/15/24 10:25 Brief Hx & Hospital Course: SEE DICTATED NOTE Condition at Discharge: Fair Final Diagnosis/Problems List CHF Discharge Disposition: Home Discharge Instruct/Medications Diet: Cardiac 2g Na,low cholest Activity: No Restrictions, As Tolerated Follow Up/Referral: FU WITH PCP/CARDIOLOGY Medications: SCRIPT TO PHARMACY Discharge Statement: "Patient was advised to return to the ER or call 911 if any headaches, dizziness, shortness of breath, chest pain, abdominal pain, bleeding, fevers, or worsening of medical condition. Patient was counseled about treatment plan, medications, possible side effects, patientverbalized understanding. All questions were answered to the best of my ability. This discharge took greater then 30 minutes in planning, reviewing documentation, counseling the patient, and discussing with other team members." ASSESSMENT ASSESSMENT Assessment CHF Date of Service: August 15, 2024 Billing Provider: HILLARY HUSTON MD Common Visit Codes: [id number] DISCH DAY >30min HILLARY HUSTON MD August 15, 2024 11:54
[2024-08-15] MEDS ORDERED: CEPH500C PO (11:59)
[2024-08-15] MEDS ORDERED: SPIR25TA PO (11:59)
[2024-08-15] MEDS ORDERED: APIX5TAB PO (11:59)
[2024-08-15] MEDS ORDERED: METO25TA36 PO (11:59)
[2024-08-15] MEDS ORDERED: ATOR-507 PO (11:59)
[2024-08-15] MEDS ORDERED: SACU1TAB PO (11:59)
[2024-08-15] MEDS ORDERED: FURO1TAB31 PO (11:59)
[2024-08-15] MEDS ORDERED: LEVO25TA6 PO (11:59)
--- NOTE | 2024-08-15 13:58 | DVHPN2 ---
Progress Note - Dictate Date Seen: August 13, 2024 Medical Necessity Reason Pt with a Central, PICC or Fol: No Subjective PT WITH HX OF ORGANIC HD CAD HFrEF S/P PTCA STENT AFIB HYPERCOAGULABLE STATE PSORIASIS CELLULITIS POSSIBLE INFILTRATIVE PROCESS IN LUNG NOW WITH ELEVATED BNP NEGATIVE TROPONIN GALLSTONES ASCITES RIGHT PLEURAL EFFUSION WITH ATELECTASIS INGUINAL ADENOPATHY vital signs Vital Sign Date Time Temp Pulse Resp B/P (MAP) Pulse Ox O2 Delivery O2 Flow Rate FiO2 08/15/24 12:38 96.3 74 16 115/71 (86) 94 96.3 08/15/24 08:05 Room Air* 0 21 Total Intake and Output 08/14/24 08/14/24 08/15/24 15:00 23:00 07:00 Intake Total 150 ml 2045 ml 440 ml Output Total 800 ml 500 ml Balance 150 ml 1245 ml -60 ml laboratory and microbiology Laboratory Tests 08/15/24 10:25 Test 08/15/24 10:25 Range/Units Serum Glucose 86 74-106 mg/dL Problem List HX OF ORGANIC HD CAD HFrEF ACUTE DECOMPENSATION S/P PTCA STENT AFIB HYPERCOAGULABLE STATE PSORIASIS CELLULITIS POSSIBLE INFILTRATIVE PROCESS IN LUNG NOW WITH ELEVATED BNP NEGATIVE TROPONIN GALLSTONES ASCITES RIGHT PLEURAL EFFUSION WITH ATELECTASIS INGUINAL ADENOPATHY HYPOTHYROIDISM Assessment/Plan ECHO AGREE WITH LASIX ENTRESTO ALDACTONE BETA HERI ABX NO NEED FOR LHC AT THIS TIME ESPECIALLY WITH GROIN INFECTION EF <15% PT NEEDS AICD BUT IS RELUCTANT WILL DISCUSS OUTPATIENT Dietary Evaluation Review Recommendations by RD: Protein Supplementation Comments: 1) Initiate Glucerna bid. Encourage optimal PO intake. 2) Initiate vitamin C @ 500 mg bid and zinc sulfate @ 220 mg qd for 7-10 days 3) Refer to outpatient RD/[facility] for weight management 4) Follow-up with cardiology and pulmonology 5) Continue to monitor I&O, labs, and skin integrity Expected Outcomes/Goals: 1) appetite and labs to improve 2) wounds to improve 3) f/u in 3-5 days Plan discussed with: Patient BETTE CARMEN MD August 15, 2024 13:58
--- NOTE | 2024-08-15 13:59 | DVHPN2 ---
Progress Note - Dictate Date Seen: August 14, 2024 Medical Necessity Reason Pt with a Central, PICC or Fol: No Subjective PT WITH HX OF ORGANIC HD CAD HFrEF S/P PTCA STENT AFIB HYPERCOAGULABLE STATE PSORIASIS CELLULITIS POSSIBLE INFILTRATIVE PROCESS IN LUNG NOW WITH ELEVATED BNP NEGATIVE TROPONIN GALLSTONES ASCITES RIGHT PLEURAL EFFUSION WITH ATELECTASIS INGUINAL ADENOPATHY vital signs Vital Sign Date Time Temp Pulse Resp B/P (MAP) Pulse Ox O2 Delivery O2 Flow Rate FiO2 08/15/24 12:38 96.3 74 16 115/71 (86) 94 96.3 08/15/24 08:05 Room Air* 0 21 Total Intake and Output 08/14/24 08/14/24 08/15/24 15:00 23:00 07:00 Intake Total 150 ml 2045 ml 440 ml Output Total 800 ml 500 ml Balance 150 ml 1245 ml -60 ml laboratory and microbiology Laboratory Tests 08/15/24 10:25 Test 08/15/24 10:25 Range/Units Serum Glucose 86 74-106 mg/dL Problem List HX OF ORGANIC HD CAD HFrEF ACUTE DECOMPENSATION S/P PTCA STENT AFIB HYPERCOAGULABLE STATE PSORIASIS CELLULITIS POSSIBLE INFILTRATIVE PROCESS IN LUNG NOW WITH ELEVATED BNP NEGATIVE TROPONIN GALLSTONES ASCITES RIGHT PLEURAL EFFUSION WITH ATELECTASIS INGUINAL ADENOPATHY HYPOTHYROIDISM Assessment/Plan ECHO AGREE WITH LASIX ENTRESTO ALDACTONE BETA HERI ABX NO NEED FOR LHC AT THIS TIME ESPECIALLY WITH GROIN INFECTION EF <15% PT NEEDS AICD BUT IS RELUCTANT WILL DISCUSS OUTPATIENT DC HOME FOLLOWUP OUTPT Dietary Evaluation Review Recommendations by RD: Protein Supplementation Comments: 1) Initiate Glucerna bid. Encourage optimal PO intake. 2) Initiate vitamin C @ 500 mg bid and zinc sulfate @ 220 mg qd for 7-10 days 3) Refer to outpatient RD/[facility] for weight management 4) Follow-up with cardiology and pulmonology 5) Continue to monitor I&O, labs, and skin integrity Expected Outcomes/Goals: 1) appetite and labs to improve 2) wounds to improve 3) f/u in 3-5 days Plan discussed with: Patient BETTE CARMEN MD August 15, 2024 13:59
--- NOTE | 2024-08-15 16:40 | DVHDS ---
DATE OF DISCHARGE: 08/15/2024 HISTORY OF PRESENT ILLNESS: The patient is a 68-year-old gentleman who is admitted with history of bilateral leg swelling, shortness of breath, diarrhea, and right leg redness. He has history of atrial fibrillation, coronary artery disease with previous stent, congestive heart failure, hypertension, hypothyroidism, and psoriasis. HOSPITAL COURSE: The patient was seen in Cardiology consult by Dr. Savage. The patient's hemoglobin A1c was 6.4. The patient's TSH was 8.2. His troponin level was 55. The patient was diuresed with Lasix as well as put on anticoagulation. Doppler of lower extremities showed bilateral inguinal lymph nodes larger on the right side. The patient had a liver ultrasound that showed evidence of cholelithiasis. Dr. Savage had a discussion about the patient about AICD, at this time, however, the patient wishes to hold off. He will now be discharged to be on Eliquis 5 mg p.o. b.i.d., Lipitor 40 mg at bedtime, cephalexin 500 mg t.i.d. for 7 days, Lasix 40 mg daily, levothyroxine 25 mcg daily, Toprol XL 25 mg daily, Entresto 1 tab b.i.d., Aldactone 25 mg daily. 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 The patient also had an echocardiogram that showed ejection fraction of 15% with severely dilated left atrium. FINAL DIAGNOSES: Therefore: * Acute on chronic systolic heart failure. * History of coronary artery disease with stent. * Atrial fibrillation with secondary hypercoagulable state. * Psoriasis. * Hypothyroidism. * Gallstones. * Cellulitis, right thigh and scrotum. * Noncompliance. Time spent in discharge planning and review of plan with the patient and nursing was 38 minutes. MD MUSTAPHA Dominguez/TOYIN TID: [id number] RECEIPT: [id number]
== END 2024-08-15 13:38 | disposition home or self-care (01) | DRG 280 ==
LOC: ER 16:24 → OVERFLOW 21:06 → TELE-WESTW 08-11 18:52
PROVIDERS: ADMIT Internal Medicine; ATTEND Internal Medicine
DX: I13.0 Hypertensive heart and chronic kidney disease with heart failure and stage 1 through stage 4 chronic kidney disease, or unspecified chronic kidney disease (principal); I50.23 Acute on chronic systolic (congestive) heart failure; I21.A1 Myocardial infarction type 2; J15.9 Unspecified bacterial pneumonia; J96.00 Acute respiratory failure, unspecified whether with hypoxia or hypercapnia; L03.115 Cellulitis of right lower limb; D68.69 Other thrombophilia; N49.2 Inflammatory disorders of scrotum; I25.10 Atherosclerotic heart disease of native coronary artery without angina pectoris; N18.1 Chronic kidney disease, stage 1; K80.20 Calculus of gallbladder without cholecystitis without obstruction; K76.0 Fatty (change of) liver, not elsewhere classified; E03.9 Hypothyroidism, unspecified; I48.91 Unspecified atrial fibrillation; L40.9 Psoriasis, unspecified; I45.10 Unspecified right bundle-branch block; R74.01 Elevation of levels of liver transaminase levels; E11.22 Type 2 diabetes mellitus with diabetic chronic kidney disease; Z91.199 Patient's noncompliance with other medical treatment and regimen due to unspecified reason; Z79.01 Long term (current) use of anticoagulants; Z79.899 Other long term (current) drug therapy
CPT/HCPCS: 36415; 71045; 71046; 76705; 80048; 80053; 80061; 80074; 80202; 80307; 81001; 82248; 83036; 83735; 83880; 84100; 84439; 84443; 84481; 84484; 85025; 85610; 85652; 85730; 86141; 93005; 93306; 93970; 99291; G0378; J3490